=== PATIENT | male | born 1970 | race Two or more races ===

== ENCOUNTER 2024-06-03 21:32 | Emergency (ER) | payer SELFPAY ==
[2024-06-03 21:33] VITALS: BMI 29.4
[2024-06-03 21:47] VITALS: BP 131/84; PULSE 93; RESP 22; TEMP 36.8; O2SAT 92
--- NOTE | 2024-06-03 22:11 | PD.ASTHM ---
ED Asthma RME/HPI General Chief Complaint: Asthma Stated Complaint: COUGH, HX ASTHMA Time Seen by Provider: 06/03/24 22:02 Source: patient Arrival date/time: 06/03/24 21:32 Mode of arrival: ambulatory Limitations: no limitations RME / HPI RME / HPI Narrative: 53-year-old patient presents to the ED with a complaint of asthma like symptoms x 2 weeks. Patient tells me his inhaler were not ordered. MD complaint: asthma attack , shortness of breath and wheezing Onset (ago): week(s) (X 2) Severity: moderate and similar to prior Context: none known Associated symptoms: none Treatments Prior to Arrival: inhaled bronchodilator Related Data Current Asthma Therapy: inhaled bronchodilator Allergies Allergy/AdvReac Type Severity Reaction Status Date / Time acetaminophen (From Tylenol) Allergy Mild Rash Verified 06/03/24 21:37 Review of Systems Review of Systems Systems Reviewed: All systems reviewed, normal except as documented Constitutional Constitutional: Reports system reviewed and no additional complaints, except as documented Cardiovascular Cardiovascular: Reports system reviewed and no additional complaints, except as documented and Reports dyspnea on exertion Respiratory Respiratory: Reports dyspnea on exertion Gastrointestinal Gastrointestinal: Reports system reviewed and no additional complaints, except as documented Musculoskeletal Musculoskeletal: Reports system reviewed and no additional complaints, except as documented Neurologic Neurologic: Reports system reviewed and no additional complaints, except as documented ED Exam General Limitations: Present no limitations General appearance: Present alert and in no apparent distress Head Head exam: Present atraumatic and normocephalic Eye Eye exam: Present normal appearance and EOMI ENT ENT exam: Present normal exam and normal oropharynx Neck Neck exam: Present normal inspection and full ROM Chest Chest inspection: Present normal inspection and symmetric chest wall rise Respiratory Respiratory exam: Present wheezes (WHEEZING THROUGHOUT.) Cardiovascular Cardiovascular exam: Present regular rate Back Exam Back exam: Present normal inspection and full ROM Neurological Exam Neurological exam: Present alert and oriented X3 Psychiatric Psychiatric exam: Present normal affect and normal mood Skin Skin exam: Present warm, dry, intact and normal color Course Course Course Narrative: Patient will have dexamethasone breathing treatment, he will also have his milligrams of dexamethasone by Quality Measures none Orders Category Date Time Status Albuterol/Ipratr Rt Ni [Duoneb Rt Ni] Med 06/03/24 22:03 Discontinued 3 ml INH X1 ONE Dexamethasone Inj [Decadron Inj] Med 06/03/24 22:03 Discontinued 10 mg IM X1 ONE Vital Signs Vital signs: Vital Signs Temperature 98.3 F 06/03/24 21:47 Pulse Rate 93 06/03/24 21:47 Respiratory Rate 22 H 06/03/24 21:47 Blood Pressure 131/84 H 06/03/24 21:47 Pulse Oximetry (%) 92 L 06/03/24 21:47 Oxygen Delivery Method Room Air 06/03/24 21:47 Pulse ox on room air is 92% Asthma Patient data External records reviewed:: Other (specify) Clinical information provided by:: patient Social determinants that could affect healthcare access:: none Patient has the following chronic illnesses:: N/A How is presenting disease/condition affected by chronic disease/condition?: caused by (eXPOSURE TO THE COLD) Evaluation data The following diagnostics were reviewed and interpreted by me:: lab results (N/A) Lab and/or radiology exams considered but not ordered:: N/A Interpretation Summary: N/A Medications / Prescriptions Medications or Prescriptions considered but not ordered:: N/A Medication administrations:: Medication Administration History Discontinued Medications Albuterol/Ipratropium (Albuterol/Ipratropium (Duoneb) Rt Ni 3 Ml Nebu) 3 ml INH X1 ONE Stop: 06/03/24 22:04 Dexamethasone Sodium Phosphate (Dexamethasone Sod Phos Inj 10 Mg/Ml Vial) 10 mg IM X1 ONE Stop: 06/03/24 22:04 Consultations Consultation(s) initiated? (list below): No Diagnosis Most likely diagnosis given after review of the tests above:: NA Admission Indicated Admission indicated?: not indicated Admission Request Was there a request for admission?: No Disposition Plan Disposition Plan: Discharge Discharge Attestation Discharge Attestation: The patient and all family members were given an opportunity to ask questions and understood the discharge instructions. Discharge instructions specifically effects, indications for sooner follow up or return to the emergency department, and the expected course of current diagnosis. Patient condition: Stable Discharge Plan Plan Patient Disposition: HOME (Self Care) Disposition Comment: Patient discharged to home in no apparent respiratory distress. Patient condition on transfer: Stable Problem List Clinical Impression: Asthma with acute exacerbation Impression comment: Auscultation status post breathing treatment patient sounds clear, there is a slight hint of wheezing. Patient/Caregiver Discharge Instructions Education Materials: Asthma Print Language: Arabic JESUSITA/SHANE Supervising Physician JESUSITA/AGRICULTURAL PRODUCTION ENGINEER Supervising Physician: PERLA
[2024-06-03] MEDS: ALBUTEROL/IPRATROPIUM (Duoneb) RT SOL 3 ML NEBU INH (22:14)
[2024-06-03 22:19] VITALS: PULSE 89; RESP 18; O2SAT 100
[2024-06-03] MEDS: DEXAMETHASONE SOD PHOS INJ 10 MG/ML VIAL IM (22:20)
== END 2024-06-03 22:54 | disposition home or self-care (01) ==
LOC: SERX 23:00
PROVIDERS: Emergency Provider Emergency Medicine
DX: J45.901 Unspecified asthma with (acute) exacerbation (principal)
CPT/HCPCS: 94640; 96372; 99283; A9270; J1100

== ENCOUNTER 2024-09-25 08:31 | Emergency (ER) | payer MEDICAID, SELFPAY ==
[2024-09-25 08:54] VITALS: BP 119/77; PULSE 77; RESP 22; TEMP 36.6; O2SAT 94
--- NOTE | 2024-09-25 08:54 | EKG_ITS ---
[facility] Test Date: 2024-09-25 Pat Name: LIDIA PAREDES Department: Room: - Gender: Male Manager Urology: : 1970 Requested By: Isidro Nye (WILLIE) Order Number: [id number] Reading MD: Isidro Nye (ILLUSTRATOR SET) Measurements Intervals [place] Rate: 78 P: 68 [place]: 172 QRS: 58 QRSD: 90 T: 53 QT: 399 QTc: 455 Interpretive Statements SINUS RHYTHM No previous ECG available for comparison /store/S0/[id number]
[2024-09-25 08:59] VITALS: BMI 27.6
--- NOTE | 2024-09-25 09:07 | PD.EDSOB ---
ED SOB =RME/HPI General Chief Complaint: Shortness of Breath/Dyspnea Stated Complaint: SOB X 4 days, asthma Time Seen by Provider: 09/25/24 09:06 Arrival date/time: 09/25/24 08:31 Limitations: no limitations RME / HPI RME / HPI Narrative: 53 year old male with history of asthma presents to the ED for evaluation of shortness of breath beginning 4 days ago. Described feeling he is not able to get a full breath in. Not improved with use of his inhaler. No other associated symptoms reported. Denies fevers, chills, chest pain, abdominal pain, n/v. Related Data Previous Rx's ?Medication ?Instructions ?Recorded albuterol sulfate 90 mcg/actuation 2 puff inhalation Q6H PRN 09/25/24 aerosol inhaler shortness of breath or wheezing #8.5 grams prednisone 20 mg tablet See Taper PO QDAY allergic 09/25/24 reaction #18 tabs Allergies Allergy/AdvReac Type Severity Reaction Status Date / Time No Known Drug Allergies Allergy Verified 09/25/24 08:36 Review of Systems Review of Systems Systems Reviewed: All systems reviewed, normal except as documented Past Medical History Past Medical History CARDIAC: Negative Congestive Heart Failure RESPIRATORY: Positive Asthma; Negative Chronic Obstructive Pulmonary Disease (COPD) GENITOURINARY: Negative Renal Disease ENDOCRINE: Negative Diabetes Mellitus Type 1 or Diabetes Mellitus Type 2 Social History SMOKING STATUS: Never smoker ED Exam General Limitations: Present no limitations General appearance: Present alert and in no apparent distress Head Head exam: Present atraumatic, normocephalic and normal inspection Eye Eye exam: Present normal appearance, PERRL and EOMI ENT ENT exam: Present normal exam, normal oropharynx and mucous membranes moist Neck Neck exam: Present normal inspection, full ROM and trachea midline Chest Chest inspection: Present normal inspection and symmetric chest wall rise Respiratory Respiratory exam: Present other (Diminished breath sounds throughout worse in the bases, expiratory wheezing throughout ) Cardiovascular Cardiovascular exam: Present regular rate, normal rhythm and normal heart sounds Abdominal Exam Abdominal exam: Present soft and normal bowel sounds Extremities Exam Extremities exam: Present normal inspection and full ROM Back Exam Back exam: Present normal inspection and full ROM Neurological Exam Neurological exam: Present alert, oriented X3 and CN II-XII intact Psychiatric Psychiatric exam: Present normal affect and normal mood Skin Skin exam: Present warm, dry, intact and normal color Course Course Course Narrative: 1214: On reassessment, the patient reports feeling some improvement. Will order a second breathing treatment and most likely send home with a prescription for Prednisone and Albuterol inhaler. 1310: Patient reports feeling improved. Will DC home. Quality Measures none Orders Category Date Time Status Erosion Control Coordinator NOW Care 09/25/24 08:54 Completed Continuous Pulse Oximetry NOW Care 09/25/24 08:54 Completed EKG (ED ONLY) *Do not use* NOW Care 09/25/24 08:54 Completed EKG (ED ONLY) *Do not use* NOW Care 09/25/24 09:12 Completed Insert IV NOW Care 09/25/24 09:12 Completed EKG (ED Only) Stat Exams 09/25/24 08:54 Draft EKG (ED Only) Stat Exams 09/25/24 09:12 Ordered XR chest 1V portable Stat Exams 09/25/24 09:12 Completed CBC Stat Lab 09/25/24 09:26 Completed Comprehensive Metabolic Panel Stat Lab 09/25/24 09:26 Completed Prothrombin Time with INR Stat Lab 09/25/24 09:26 Completed Troponin I Stat Lab 09/25/24 09:26 Completed ALBUTEROL RT 0.5ml [Proventil Rt 0.5ml] Med 09/25/24 08:54 Discontinued 10 mg INH X1 ONE ALBUTEROL RT 0.5ml [Proventil Rt 0.5ml] Med 09/25/24 12:14 Discontinued 5 mg INH X1 ONE Ipratropium [place] Rt Ni [Atrovent Rt Ni] Med 09/25/24 08:54 Discontinued 1 mg INH X1 ONE MethylPREDNISolone.* [SoluMEDROL Inj] Med 09/25/24 08:54 Discontinued 125 mg IVP X1 ONE Sodium Chloride Rt Ni 0.9% [NS Rt Ni 0.9%] Med 09/25/24 08:54 Discontinued 3 ml INH PRN PRN Oxygen Delivery NOW RT 09/25/24 09:12 Completed Vital Signs Vital signs: Vital Signs Temperature 97.8 F 09/25/24 08:54 Pulse Rate 77 09/25/24 08:54 Respiratory Rate 22 H 09/25/24 08:54 Blood Pressure 119/77 09/25/24 08:54 Pulse Oximetry (%) 94 L 09/25/24 08:54 Oxygen Delivery Method Room Air 09/25/24 08:54 Pulse ox is 94% on room air which is adequate. Shortness of Breath / Dyspnea MDM Narrative MDM Narrative:: Yulisa Shine am scribing for and in the presence of Dr. Laws Patient data External records reviewed:: [facility] previous records (I reviewed ED visit on 06/03/2024 ) Clinical information provided by:: patient Social determinants that could affect healthcare access:: none Patient has the following chronic illnesses:: Asthma How is presenting disease/condition affected by chronic disease/condition?: no chronic disease Evaluation data The following diagnostics were reviewed and interpreted by me:: lab results, radiology exam(s) and EKG tracing(s) (09/25/2024 @ 08:55 AM. NSR, rate 78, no STEMI. ) Lab and/or radiology exams considered but not ordered:: None Interpretation Summary: Ordering Physician: Antonio Laws MD Date of Service: 09/25/24 Procedure(s): XR chest 1V portable Accession Number(s): [id number] cc: Antonio Laws MD; Laith Sage MD~ Examination: AP chest single view Technique one AP portable upright chest single view Date and time: September 25, 2024 0933 hours INDICATIONS: Shortness of breath beginning 4 days ago. FINDINGS: Normal heart size. Lungs are clear. The osseous structures are intact. IMPRESSION: No active disease. Dictated By: Laith Sage MD Signed By: <Electronically signed by Laith Sage MD in OV> 09/25/24 0943 Medications / Prescriptions Medications or Prescriptions considered but not ordered:: None Medication administrations:: Medication Administration History Discontinued Medications Albuterol (Albuterol Rt 2.5 Mg/0.5 Ml Nebu) 10 mg INH X1 ONE Stop: 09/25/24 08:55 Last Admin: 09/25/24 09:10 Dose: 10 mg Documented By: DU Albuterol (Albuterol Rt 2.5 Mg/0.5 Ml Nebu) 5 mg INH X1 ONE Stop: 09/25/24 12:15 Last Admin: 09/25/24 12:46 Dose: 5 mg Documented By: DU Ipratropium [place] (Ipratropium Rt 0.5 Mg/ 2.5 Ml Nebu) 1 mg INH X1 ONE Stop: 09/25/24 08:55 Last Admin: 09/25/24 09:09 Dose: 1 mg Documented By: JANEEN Methylprednisolone Sodium Succinate (Methylprednisolone Sod Succ 62.5 Mg/Ml 2ml Vial) 125 mg IVP X1 ONE Stop: 09/25/24 08:55 Last Admin: 09/25/24 09:53 Dose: 125 mg Documented By: BEN Sodium Chloride (Sodium Chloride Rt Ni 0.9% 3 Ml Nebu) 3 ml INH PRN PRN PRN Reason: SOLN Stop: 10/25/24 08:53 Last Admin: 09/25/24 12:46 Dose: 3 ml Documented By: Admin: 09/25/24 09:10 Dose: 3 ml Documented By: JANEEN See above Consultations Consultation(s) initiated? (list below): No Diagnosis Shortness of Breath Differential Diagnosis: acute exacerbation of chronic obstructive airways disease, congestive heart failure, community acquired pneumonia, asthma with exacerbation and other (Viral illness ) Most likely diagnosis given after review of the tests above:: Asthma with exacerbation Admission Indicated Admission indicated?: not indicated Admission Request Was there a request for admission?: No Disposition Plan Disposition Plan: Discharge Discharge Attestation Discharge Attestation: The patient and all family members were given an opportunity to ask questions and understood the discharge instructions. Discharge instructions specifically effects, indications for sooner follow up or return to the emergency department, and the expected course of current diagnosis. Patient condition: Stable Discharge Plan Plan Patient Disposition: HOME (Self Care) Prescriptions/Referrals Prescriptions/Med Rec: New prednisone 20 mg tablet See Taper PO QDAY MDD 3 Qty: 18 0RF Taper: Prednisone Taper 20 mg DAILY for 1 Day and 0 Hour Rx Instructions: Take 3 Tabs q Day for 3 days then take 2 tabs q Day for 3 days then take 1 tablet q Day for 3 days then D/C #18 albuterol sulfate 90 mcg/actuation HFA aerosol inhaler 2 puff inhalation Q6H MDD 8 PUFFS PRN (Reason: shortness of breath or wheezing) Qty: 8.5 1RF Referrals: Tiana Tarango FNP [Primary Care Provider] - In 1 week Problem List Clinical Impression: Asthma with exacerbation Patient/Caregiver Discharge Instructions Print Language: Prydeinig Stand Alone Forms: Jeannie Award Info., Patient Portal Info Letter
[2024-09-25] MEDS: IPRATROPIUM RT 0.5 MG/ 2.5 ML NEBU 1 MG INH (09:09)
[2024-09-25 09:10] VITALS: PULSE 104; PULSE 73; RESP 20; O2SAT 99
[2024-09-25] MEDS: SODIUM CHLORIDE RT SOL 0.9% 3 ML NEBU INH ×2 (09:10→12:46)
[2024-09-25] MEDS: ALBUTEROL RT 2.5 MG/0.5 ML NEBU 10 MG INH (09:10)
--- NOTE | 2024-09-25 09:12 | XR_ITS ---
Examination: AP chest single view Technique one AP portable upright chest single view Date and time: September 25, 2024 0933 hours INDICATIONS: Shortness of breath beginning 4 days ago. FINDINGS: Normal heart size. Lungs are clear. The osseous structures are intact. IMPRESSION: No active disease.
[2024-09-25 09:42] LABS: Basophils # (Auto) 0.1 Thou/mm3 (0.0-0.2); Basophils % (Auto) 1 % (0-2.5); Eosinophils # (Auto) 1.0 Thou/mm3 (0.0-0.5); Eosinophils % (Auto) 14 % (0-10); Hematocrit 47.6 % (41.0-53.0); Hemoglobin 16.3 g/dL (13.5-16.0); Immature Granulocytes Auto 0.01 Thou/mm3 (0.00-0.00); Lymphocytes # (Auto) 2.6 Thou/mm3 (1.0-4.8); Lymphocytes % (Auto) 35 % (10-50); Mean Corpuscular HGB Conc 34.2 g/dl (31.0-37.0); Mean Corpuscular Hemoglobin 32.1 pg (25.0-35.0); Mean Corpuscular Volume 94 fL (80-100); Monocytes # (Auto) 0.6 Thou/mm3 (0.0-0.8); Monocytes % (Auto) 8 % (0-12); Neutrophils # (Auto) 3.1 Thou/mm3 (1.8-7.7); Neutrophils % (Auto) 42 % (37-80); Nucleated Red Blood Cell # 0.00 Thou/mm3 (0.00-0.00); Nucleated Red Blood Cell % 0 /100 WBC (0); Platelet Count 206 Thou/mm3 (140-440); RDW Standard Deviation 43.4 fL (35.1-43.9); Red Blood Count 5.07 Miln/mm3 (4.50-5.90); White Blood Count 7.3 Thou/mm3 (3.8-10.6)
[2024-09-25] MEDS: MethylPREDNISolone SOD SUCC 62.5 MG/ML 2ML VIAL 125 MG IVP (09:53)
[2024-09-25 09:54] VITALS: BP 125/85; PULSE 75; PULSE 79; RESP 22; O2SAT 95
[2024-09-25 09:59] LABS: Alanine Aminotransferase 37 U/L (10-49); Albumin, Serum 4.5 gm/dL (3.5-5.0); Albumin/Globulin Ratio 1.8 (1.2-2.2); Alkaline Phosphatase 117 U/L (46-116); Anion Gap 12 (7-16); Aspartate Amino Transferase 50 U/L (0-34); BUN/Creatinine Ratio 16 Ratio (12-20); Bilirubin,Total 0.7 mg/dL (0.3-1.2); Blood Urea Nitrogen 13 mg/dL (9-23); Calcium 9.2 mg/dL (8.3-10.6); Calcium (Corrected) 9.2 mg/dL (8.5-10.1); Carbon Dioxide 24.5 mMol/L (20.0-31.0); Chloride 104 mMol/L (98-107); Creatinine (Component) 0.8 mg/dL (0.6-1.3); Estimated Creatinine Clearance 99.0 mL/min (>60); Globulin 2.5 gm/dL (2.3-3.5); Glucose 102 mg/dL (74-106); INR 1.1 (0.9-1.3); Osmolality,Calculated 279 (275-295); Potassium 3.6 mMol/L (3.4-5.1); Prothrombin Time 11.9 Seconds (9.0-12.2); Sodium 140 mMol/L (136-145); Total Protein 7.0 gm/dL (5.7-8.2); Troponin I < 0.020 ng/mL (0.0-0.045); eGFR > 60 See Note
[2024-09-25 12:46] VITALS: PULSE 77
[2024-09-25] MEDS: ALBUTEROL RT 2.5 MG/0.5 ML NEBU 5 MG INH (12:46)
[2024-09-25 12:47] VITALS: PULSE 77; PULSE 78; RESP 22; RESP 25; O2SAT 94
[2024-09-25 13:18] VITALS: BP 124/75; PULSE 80; RESP 18; O2SAT 88
--- NOTE | 2024-09-25 13:24 | PC.NURSE ---
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 stated okay to dc
== END 2024-09-25 13:31 | disposition home or self-care (01) ==
PROVIDERS: Emergency Provider Family Medicine; PCP Nurse Practitioner Family
DX: J45.901 Unspecified asthma with (acute) exacerbation (principal)
CPT/HCPCS: 36415; 71045; 80053; 81001; 84484; 85025; 85610; 93005; 94640; 94644; 96374; 99283; J2919

== ENCOUNTER 2024-10-27 10:00 | Emergency (ER) | payer MEDICAID, SELFPAY ==
[2024-10-27 10:01] VITALS: BMI 27.4
--- NOTE | 2024-10-27 10:05 | EKG_ITS ---
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
--- NOTE | 2024-10-27 10:12 | XR_ITS ---
Examination: AP chest single view Technique one AP portable upright chest single view Date and time: October 27, 2024, 1018 hrs. Indications: Asthma attack with shortness of breath beginning one week ago. Findings: Normal heart size. Lungs are clear. The osseous structures are intact Impression: No active disease.
[2024-10-27 10:13] VITALS: BP 138/93; PULSE 84; RESP 16; TEMP 37.1; O2SAT 91
--- NOTE | 2024-10-27 10:13 | PD.EDRME ---
Rapid Medical Screening Exam RME Arrival date/time: 10/27/24 10:00 53-year-old male with history of asthma presents to the emergency department today for complaints of difficulty breathing patient has audible wheezing Chief Complaint: Shortness of Breath/Dyspnea
[2024-10-27 10:23] VITALS: PULSE 87
[2024-10-27] MEDS: IPRATROPIUM RT 0.5 MG/ 2.5 ML NEBU 1 MG INH (10:23)
[2024-10-27] MEDS: SODIUM CHLORIDE RT SOL 0.9% 3 ML NEBU INH (10:23)
[2024-10-27] MEDS: ALBUTEROL RT 2.5 MG/0.5 ML NEBU 10 MG INH (10:23)
[2024-10-27 10:26] VITALS: PULSE 87; RESP 16; O2SAT 95
[2024-10-27] MEDS: MethylPREDNISolone SOD SUCC 62.5 MG/ML 2ML VIAL 125 MG IVP (10:27)
[2024-10-27 10:43] LABS: Basophils # (Auto) 0.0 Thou/mm3 (0.0-0.2); Basophils % (Auto) 1 % (0-2.5); Eosinophils # (Auto) 0.7 Thou/mm3 (0.0-0.5); Eosinophils % (Auto) 8 % (0-10); Hematocrit 47.5 % (41.0-53.0); Hemoglobin 16.4 g/dL (13.5-16.0); Immature Granulocytes Auto 0.02 Thou/mm3 (0.00-0.00); Lymphocytes # (Auto) 1.8 Thou/mm3 (1.0-4.8); Lymphocytes % (Auto) 21 % (10-50); Mean Corpuscular HGB Conc 34.5 g/dl (31.0-37.0); Mean Corpuscular Hemoglobin 31.9 pg (25.0-35.0); Mean Corpuscular Volume 92 fL (80-100); Monocytes # (Auto) 0.7 Thou/mm3 (0.0-0.8); Monocytes % (Auto) 8 % (0-12); Neutrophils # (Auto) 5.5 Thou/mm3 (1.8-7.7); Neutrophils % (Auto) 63 % (37-80); Nucleated Red Blood Cell # 0.00 Thou/mm3 (0.00-0.00); Nucleated Red Blood Cell % 0 /100 WBC (0); Platelet Count 306 Thou/mm3 (140-440); RDW Standard Deviation 42.1 fL (35.1-43.9); Red Blood Count 5.14 Miln/mm3 (4.50-5.90); White Blood Count 8.7 Thou/mm3 (3.8-10.6)
--- NOTE | 2024-10-27 10:58 | PD.EDSOB ---
ED SOB =RME/HPI General Chief Complaint: Shortness of Breath/Dyspnea Stated Complaint: DIFF BREATHING/COUGH/ASTHMA X 1 WK Time Seen by Provider: 10/27/24 10:39 Arrival date/time: 10/27/24 10:00 Limitations: no limitations RME / HPI RME / HPI Narrative: 10/27/24 10:00 53-year-old male with history of asthma presents to the emergency department today for complaints of difficulty breathing patient has audible wheezing DR. PRAJAPATI MAIN ED EVALUATION: 53-year-old male with past medical history of asthma presents to the Emergency Department accompanied by his with shortness of breath for one week. He reports cough productive of yellow-white phlegm and states that albuterol has not been providing relief. He denies smoking or other social history. Related Data Previous Rx's ?Medication ?Instructions ?Recorded albuterol sulfate 90 mcg/actuation 2 puff inhalation Q6H PRN 09/25/24 aerosol inhaler shortness of breath or wheezing #8.5 grams prednisone 20 mg tablet See Taper PO QDAY allergic 09/25/24 reaction #18 tabs Allergies Allergy/AdvReac Type Severity Reaction Status Date / Time No Known Drug Allergies Allergy Verified 10/27/24 10:04 Review of Systems Review of Systems Systems Reviewed: All systems reviewed, normal except as documented Past Medical History Past Medical History RESPIRATORY: Positive Asthma Social History SMOKING STATUS: Never smoker SUBSTANCE USE: does not use ALCOHOL: Never ED Exam General Limitations: Present no limitations General appearance: Present alert and in no apparent distress Head Head exam: Present atraumatic, normocephalic and normal inspection Eye Eye exam: Present normal appearance, PERRL and EOMI ENT ENT exam: Present normal exam, normal oropharynx and mucous membranes moist Neck Neck exam: Present normal inspection, full ROM and trachea midline Chest Chest inspection: Present normal inspection and symmetric chest wall rise Respiratory Respiratory exam: Present other (Expiratory wheezing and prolonged expiratory phase without crackles or rales.) Cardiovascular Cardiovascular exam: Present regular rate, normal rhythm and normal heart sounds Abdominal Exam Abdominal exam: Present soft and normal bowel sounds Extremities Exam Extremities exam: Present normal inspection and full ROM Back Exam Back exam: Present normal inspection and full ROM Neurological Exam Neurological exam: Present alert, oriented X3 and CN II-XII intact Psychiatric Psychiatric exam: Present normal affect and normal mood Skin Skin exam: Present warm, dry, intact and normal color Course Quality Measures none Orders Category Date Time Status EKG (ED ONLY) *Do not use* NOW Care 10/27/24 10:05 Completed Insert IV NOW Care 10/27/24 10:12 Active EKG (ED Only) Stat Exams 10/27/24 10:05 Draft XR chest 1V portable Stat Exams 10/27/24 10:12 Completed CBC Stat Lab 10/27/24 10:30 Completed Comprehensive Metabolic Panel Stat Lab 10/27/24 10:30 Completed Mag [Magnesium] Stat Lab 10/27/24 10:30 Completed Troponin I Stat Lab 10/27/24 10:30 Completed ALBUTEROL RT 0.5ml [Proventil Rt 0.5ml] Med 10/27/24 10:12 Discontinued 10 mg INH X1 ONE Ipratropium [place] Rt Ni [Atrovent Rt Ni] Med 10/27/24 10:12 Discontinued 1 mg INH X1 ONE Magnesium Sulfate 2 GM Ivpb [Magnesium Sulfate Ivpb] Med 10/27/24 11:05 Discontinued 2 gm in 50 ml IV X1 MethylPREDNISolone.* [SoluMEDROL Inj] Med 10/27/24 10:12 Discontinued 125 mg IVP X1 ONE Sodium Chloride Rt Ni 0.9% [NS Rt Ni 0.9%] Med 10/27/24 10:12 Active 3 ml INH PRN PRN Vital Signs Vital signs: Vital Signs Temperature 98.7 F 10/27/24 10:13 Pulse Rate 84 10/27/24 10:13 Respiratory Rate 16 10/27/24 10:13 Blood Pressure 138/93 H 10/27/24 10:13 Pulse Oximetry (%) 91 L 10/27/24 10:13 Oxygen Delivery Method Room Air 10/27/24 10:13 Shortness of Breath / Dyspnea MDM Narrative MDM Narrative:: I, Ruthann Sood, am scribing for and in the presence of Dr. Prajapati. Patient data External records reviewed:: [facility] previous records Clinical information provided by:: patient and spouse Social determinants that could affect healthcare access:: none Patient has the following chronic illnesses:: Asthma How is presenting disease/condition affected by chronic disease/condition?: caused by Evaluation data The following diagnostics were reviewed and interpreted by me:: lab results, radiology exam(s) and EKG tracing(s) (My interpretation: EKG performed at 1009 hours, sinus rhythm, rate 84, no acute changes, no STEMI) Lab and/or radiology exams considered but not ordered:: none Interpretation Summary: Procedure(s): XR chest 1V portable Accession Number(s): [id number] cc: Popeye (WILLIE),Isidro TAPIA; Laith Sage MD~ Examination: AP chest single view Technique one AP portable upright chest single view Date and time: October 27, 2024, 1018 hrs. Indications: Asthma attack with shortness of breath beginning one week ago. Findings: Normal heart size. Lungs are clear. The osseous structures are intact Impression: No active disease. Dictated By: Laith Sage MD Medications / Prescriptions Medications or Prescriptions considered but not ordered:: none Medication administrations:: Medication Administration History Sodium Chloride (Sodium Chloride Rt Ni 0.9% 3 Ml Nebu) 3 ml INH PRN PRN PRN Reason: SOLN Stop: 11/26/24 10:11 Last Admin: 10/27/24 10:23 Dose: 3 ml Documented By: LALITO Discontinued Medications Albuterol (Albuterol Rt 2.5 Mg/0.5 Ml Nebu) 10 mg INH X1 ONE Stop: 10/27/24 10:13 Last Admin: 10/27/24 10:23 Dose: 10 mg Documented By: LALITO Magnesium Sulfate (Magnesium Sulfate Ivpb) 2 gm in 50 mls @ 25 mls/hr IV X1 ONE Stop: 10/27/24 13:04 Last Admin: 10/27/24 11:24 Dose: 25 mls/hr Documented By: BHARTI Ipratropium [place] (Ipratropium Rt 0.5 Mg/ 2.5 Ml Nebu) 1 mg INH X1 ONE Stop: 10/27/24 10:13 Last Admin: 10/27/24 10:23 Dose: 1 mg Documented By: LALITO Methylprednisolone Sodium Succinate (Methylprednisolone Sod Succ 62.5 Mg/Ml 2ml Vial) 125 mg IVP X1 ONE Stop: 10/27/24 10:13 Last Admin: 10/27/24 10:27 Dose: 125 mg Documented By: BHARTI see above Consultations Consultation(s) initiated? (list below): No Diagnosis Shortness of Breath Differential Diagnosis: other (Asthma exacerbation, acute bronchitis, and pneumonia.) Most likely diagnosis given after review of the tests above:: Asthma exacerbation Admission Indicated Admission indicated?: not indicated Admission Request Was there a request for admission?: No Disposition Plan Disposition Plan: Discharge Discharge Attestation Discharge Attestation: The patient and all family members were given an opportunity to ask questions and understood the discharge instructions. Discharge instructions specifically effects, indications for sooner follow up or return to the emergency department, and the expected course of current diagnosis. Patient condition: Stable Discharge Plan Plan Patient Disposition: HOME (Self Care) Patient condition on transfer: Stable Prescriptions/Referrals Prescriptions/Med Rec: No Action prednisone 20 mg tablet See Taper PO QDAY MDD 3 Qty: 18 0RF Taper: Prednisone Taper 20 mg DAILY for 1 Day and 0 Hour Rx Instructions: Take 3 Tabs q Day for 3 days then take 2 tabs q Day for 3 days then take 1 tablet q Day for 3 days then D/C #18 albuterol sulfate 90 mcg/actuation HFA aerosol inhaler 2 puff inhalation Q6H MDD 8 PUFFS PRN (Reason: shortness of breath or wheezing) Qty: 8.5 1RF Referrals: Calvin Nina MD [Primary Care Provider, Family Practice] - In 1 week Problem List Clinical Impression: Asthma exacerbation Patient/Caregiver Discharge Instructions Education Materials: Controlling Your Asthma, Asthma Additional Instructions: Please follow-up with your primary care physician within 2-3 days. Return to the Emergency Department as needed. \ Navneet un seguimiento con shafer m?dico de cabecera dentro de 2-3 sosa. Regrese al Departamento de Emergencias seg?n sea necesario. Print Language: Sinhala Stand Alone Forms: Jeannie Award Info., Work/School Release, Patient Portal Info Letter
[2024-10-27 11:22] LABS: Alanine Aminotransferase 27 U/L (10-49); Albumin, Serum 4.4 gm/dL (3.5-5.0); Albumin/Globulin Ratio 1.8 (1.2-2.2); Alkaline Phosphatase 115 U/L (46-116); Anion Gap 8 (7-16); Aspartate Amino Transferase 25 U/L (0-34); BUN/Creatinine Ratio 11 Ratio (12-20); Bilirubin,Total 1.0 mg/dL (0.3-1.2); Blood Urea Nitrogen 10 mg/dL (9-23); Calcium 9.2 mg/dL (8.3-10.6); Calcium (Corrected) 9.2 mg/dL (8.5-10.1); Carbon Dioxide 26.0 mMol/L (20.0-31.0); Chloride 106 mMol/L (98-107); Creatinine (Component) 0.9 mg/dL (0.6-1.3); Estimated Creatinine Clearance 90.8 mL/min (>60); Globulin 2.5 gm/dL (2.3-3.5); Glucose 98 mg/dL (74-106); Magnesium 2.2 mg/dL (1.6-2.6); Osmolality,Calculated 278 (275-295); Potassium 3.9 mMol/L (3.4-5.1); Sodium 140 mMol/L (136-145); Total Protein 6.9 gm/dL (5.7-8.2); Troponin I < 0.002 ng/mL (0.0-0.045); eGFR > 60 See Note
[2024-10-27] MEDS: Magnesium Sulfate 2 GM Ivpb 2 GM/50 ML BAG IV (11:24)
[2024-10-27 13:44] VITALS: BP 119/75; PULSE 82; RESP 24; TEMP 36.8; O2SAT 93
== END 2024-10-27 15:42 | disposition home or self-care (01) ==
PROVIDERS: Nurse Practitioner Primary Care; Emergency Provider Family Medicine; PCP Family Medicine
DX: J45.901 Unspecified asthma with (acute) exacerbation (principal)
CPT/HCPCS: 36415; 71045; 80053; 83735; 84484; 85025; 93005; 94644; 96374; 99283; J2919; J3475

== ENCOUNTER 2024-11-10 09:05 | Inpatient (IN) | payer MEDICAID, SELFPAY ==
[2024-11-10] VITALS (43 sets, daily range): BP systolic 95–159; BP diastolic 56–89; PULSE 106–135; RESP 12–42; TEMP 35.9–36.8; O2SAT 91–100; BMI 30.9; BMI 25.7
--- NOTE | 2024-11-10 09:17 | XR_ITS ---
Examination: AP chest single view Technique one AP portable upright chest single view Date and time: November 10, 2024, 0957 hrs., Comparison 10/27/2024 Indication: Chest pain shortness of breath coughing today Findings: Early bibasilar pneumonia Normal heart size The osseous structures are intact Impression: Early bibasilar pneumonia
--- NOTE | 2024-11-10 09:18 | EKG_ITS ---
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
--- NOTE | 2024-11-10 09:18 | PD.EDRME ---
Rapid Medical Screening Exam E Arrival date/time: 11/10/24 09:05 This is a 53-year-old male that comes into the emergency room with complaints of shortness of breath runny nose that started last night. Patient states he has a history of asthma. Patient was seen here about 2 weeks ago with similar symptoms. Patient states he has an albuterol inhaler that he takes but it was not helping him. Patient states that his son is currently sick with a respiratory infection. Patient denies fever or chills. Patient states he did have a vomiting episode this morning. Patient denies any other symptoms. I have greeted and performed a focused initial assessment of this patient. Initial appropriate labs ordered at this time. A comprehensive ED assessment and evaluation of the patient and analysis of all test and completion of medical decision making process will be conducted by additional ED provider. Chief Complaint: Shortness of Breath/Dyspnea Time Seen by Provider: 11/10/24 09:13 Vital signs: Vital Signs Temperature 97.9 F 11/10/24 09:10 Pulse Rate 132 H 11/10/24 09:10 Respiratory Rate 24 H 11/10/24 09:10 Blood Pressure 102/61 11/10/24 09:10 Pulse Oximetry (%) 91 L 11/10/24 09:10 Oxygen Delivery Method Room Air 11/10/24 09:10
--- NOTE | 2024-11-10 09:21 | EDNOTE_ITS ---
ED SOB =RME/HPI General Chief Complaint: Shortness of Breath/Dyspnea Stated Complaint: SOB SINCE 0100 TODAY Time Seen by Provider: 11/10/24 09:13 Arrival date/time: 11/10/24 09:05 Limitations: no limitations RME / HPI RME / HPI Narrative: 11/10/24 09:05 This is a 53-year-old male that comes into the emergency room with complaints of shortness of breath runny nose that started last night. Patient states he has a history of asthma. Patient was seen here about 2 weeks ago with similar symptoms. Patient states he has an albuterol inhaler that he takes but it was not helping him. Patient states that his son is currently sick with a respiratory infection. Patient denies fever or chills. Patient states he did have a vomiting episode this morning. Patient denies any other symptoms. I have greeted and performed a focused initial assessment of this patient. Initial appropriate labs ordered at this time. A comprehensive ED assessment and evaluation of the patient and analysis of all test and completion of medical decision making process will be conducted by additional ED provider. DR. KRUSE MAIN ED EVALUATION: 53-year-old male with a past medical history of asthma presents to the Emergency Department accompanied by his for shortness of breath since 1 AM today. No fevers, chills, cough, or other symptoms at this time. On arrival, patient is dyspneic, tachypneic, with diminished breath sounds, wheezing, and appears in respiratory distress. Related Data Previous Rx's ?Medication ?Instructions ?Recorded albuterol sulfate 90 mcg/actuation 2 puff inhalation Q 6H PRN 09/25/24 aerosol inhaler shortness of breath or wheez ing #8.5 grams prednisone 20 mg tablet See Taper PO QDAY allergic 0 09/25/24 reaction #18 tabs albuterol sulfate 90 mcg/actuation 2 puff inhalation Q 6H PRN 10/27/24 aerosol inhaler shortness of breath or wheez ing #8.5 grams doxycycline monohydrate 100 mg 100 mg PO BID BRONCHITI S #20 caps 10/27/24 capsule prednisone 20 mg tablet See Taper PO QDAY allergic 0 10/27/24 reaction #18 tabs Allergies Allergy/AdvReac Type Severity Reaction Status Date / Time No Known Allergies Allergy Unverified 11/10/24 09:17 Review of Systems Review of Systems Systems Reviewed: All systems reviewed, normal except as documented Past Medical History Past Medical History RESPIRATORY: Positive Asthma Social History SMOKING STATUS: Never smoker SUBSTANCE USE: does not use ALCOHOL: Never ED Exam General Limitations: Present no limitations General appearance: Present alert and other (On arrival, patient is dyspneic, tachypneic, and appears in respiratory distress.) Head Head exam: Present atraumatic, normocephalic and normal inspection Eye Eye exam: Present normal appearance, PERRL and EOMI ENT ENT exam: Present normal exam, normal oropharynx and mucous membranes moist Neck Neck exam: Present normal inspection, full ROM and trachea midline Chest Chest inspection: Present normal inspection and symmetric chest wall rise Respiratory Respiratory exam: Present respiratory distress (Patient is dyspneic, tachypneic, with diminished breath sounds, wheezing, and appears in respiratory distress.) and wheezes Cardiovascular Cardiovascular exam: Present normal rhythm and tachycardia Abdominal Exam Abdominal exam: Present soft; Absent distention or tenderness Extremities Exam Extremities exam: Present normal inspection and full ROM Neurological Exam Neurological exam: Present alert, oriented X3 and CN II-XII intact Psychiatric Psychiatric exam: Present normal affect and normal mood Skin Skin exam: Present warm, dry, intact and normal color Course Quality Measures none Orders Category Date Time Status Bedside COVID-19 Antigen Test NOW Care 11/10/24 09:17 Active EKG (ED ONLY) *Do not use* NOW Care 11/10/24 09:18 Completed IV [Insert IV] STAT Care 11/10/24 09:18 Active EKG (ED Only) Stat Exams 11/10/24 09:18 Draft XR chest 1V Stat Exams 11/10/24 09:17 Completed Influenza A & B Rapid Panel Stat Lab 11/10/24 09:29 Completed ALBUTEROL RT 0.5ml [Proventil Rt 0.5ml] Med 11/10/24 09:21 Discontinued 10 mg INH X1 ONE ALBUTEROL RT 0.5ml [Proventil Rt 0.5ml] Med 11/10/24 11:14 Discontinued 10 mg INH X1 ONE ALBUTEROL RT 0.5ml [Proventil Rt 0.5ml] Med 11/10/24 12:29 Discontinued 10 mg INH X1 ONE ALBUTEROL RT 0.5ml [Proventil Rt 0.5ml] Med 11/10/24 09:15 Discontinued 2.5 mg INH X1 ONE EPINEPHrine Inj [Adrenalin Inj] Med 11/10/24 12:28 Discontinued 0.5 mg IM X1 ONE Ipratropium Stella Rt Ni [Atrovent Rt Ni] Med 11/10/24 09:21 Discontinued 1 mg INH X1 ONE Magnesium Sulfate 2 GM Ivpb [Magnesium Sulfate Ivpb] Med 11/10/24 09:21 Discontinued 2 gm in 50 ml IV X1 MethylPREDNISolone.* [SoluMEDROL Inj] Med 11/10/24 09:20 Discontinued 125 mg IVP X1 ONE Ringers Lactated 1000 ml [Lactated Ringers] 1,000 ml Med 11/10/24 09:21 Discontinued IV 999 mls/hr Sodium Chloride Rt Ni 0.9% [NS Rt Ni 0.9%] Med 11/10/24 09:15 Discontinued 3 ml INH PRN PRN Sodium Chloride Rt Ni 0.9% [NS Rt Ni 0.9%] Med 11/10/24 09:21 Discontinued 3 ml INH PRN PRN Sodium Chloride Rt Ni 0.9% [NS Rt Ni 0.9%] Med 11/10/24 11:14 Discontinued 3 ml INH PRN PRN Sodium Chloride Rt Ni 0.9% [NS Rt Ni 0.9%] Med 11/10/24 12:29 Active 3 ml INH PRN PRN BiPAP / CPAP NOW RT 11/10/24 11:16 Active Vital Signs Vital signs: Vital Signs Temperature 97.9 F 11/10/24 09:10 Pulse Rate 132 H 11/10/24 09:10 Respiratory Rate 24 H 11/10/24 09:10 Blood Pressure 102/61 11/10/24 09:10 Pulse Oximetry (%) 91 L 11/10/24 09:10 Oxygen Delivery Method Room Air 11/10/24 09:10 Shortness of Breath / Dyspnea MDM Narrative MDM Narrative:: Patient is a 53-year-old male with medical history notable for asthma send Emergency Department concerns for shortness of breath. Vital signs and exam as listed. Concern for asthma exacerbation, pneumonia, viral syndrome among others. Patient with any chest pain, no lower extremity edema, no history of heart disease, less likely CHF exacerbation. Patient was placed in resuscitation room, IV access obtained. Hour-long DuoNeb breathing treatment, steroids, fluids and 2 g of magnesium were provided. Chest x-ray appears hyperinflated has evidence of pneumonia. Antibiotics provided. Initially patient responded well to first hour-long breathing treatment however shortly after relapse and started having increased work of breathing and felt tight again. Provided patient with another hour-long breathing treatment and given patient's increased work of breathing also started him on BiPAP. Despite being on BiPAP, patient feels short of breath and is having a hard time achieving relief. Ordered another hour-long breathing treatment as well as intramuscular epinephrine. Discussed case with distribution designer, recommends that we trial patient off of BiPAP and keep him on DuoNebs, kindly accepts patient for admission. Updated patient and his , in agreement with treatment plan. I, Ruthann Sood, am scribing for and in the presence of Dr. Kruse. Patient data External records reviewed:: [facility] previous records Clinical information provided by:: patient Social determinants that could affect healthcare access:: none Patient has the following chronic illnesses:: Asthma How is presenting disease/condition affected by chronic disease/condition?: caused by Evaluation data The following diagnostics were reviewed and interpreted by me:: lab results, radiology exam(s) and EKG tracing(s) (My interpretation: EKG performed at 0924 hours, sinus tachycardia, rate 134, significant motion artifacti, normal intervals, not a cardiac alert) Lab and/or radiology exams considered but not ordered:: none Interpretation Summary: See MDM narrative above. RADIOLOGY Procedure(s): XR chest 1V Accession Number(s): [id number] cc: Calvin Nina MD; Laith Sage MD; Estrellita Pepper NP~ Examination: AP chest single view Technique one AP portable upright chest single view Date and time: November 10, 2024, 0957 hrs., Comparison 10/27/2024 Indication: Chest pain shortness of breath coughing today Findings: Early bibasilar pneumonia Normal heart size The osseous structures are intact Impression: Early bibasilar pneumonia Dictated By: Laith Sage MD Medications / Prescriptions Medications or Prescriptions considered but not ordered:: none Medication administrations:: Medication Administration History Sodium Chloride (Sodium Chloride Rt Ni 0.9% 3 Ml Nebu) 3 ml INH PRN PRN PRN Reason: SOLN Stop: 12/10/24 12:28 Discontinued Medications Albuterol (Albuterol Rt 2.5 Mg/0.5 Ml Nebu) 2.5 mg INH X1 ONE Stop: 11/10/24 09:16 Last Admin: 11/10/24 10:31 Dose: Not Given Documented By: LALITO Non-Admin Reason: Discontinued Albuterol (Albuterol Rt 2.5 Mg/0.5 Ml Nebu) 10 mg INH X1 ONE Stop: 11/10/24 09:22 Last Admin: 11/10/24 09:33 Dose: 10 mg Documented By: LALITO Albuterol (Albuterol Rt 2.5 Mg/0.5 Ml Nebu) 10 mg INH X1 ONE Stop: 11/10/24 11:15 Last Admin: 11/10/24 11:40 Dose: 10 mg Documented By: LALITO Albuterol (Albuterol Rt 2.5 Mg/0.5 Ml Nebu) 10 mg INH X1 ONE Stop: 11/10/24 12:30 Epinephrine HCl (Epinephrine Inj 1 Mg/Ml Amp) 0.5 mg IM X1 ONE Stop: 11/10/24 12:29 Magnesium Sulfate (Magnesium Sulfate Ivpb) 2 gm in 50 mls @ 25 mls/hr IV X1 ONE Stop: 11/10/24 11:20 Last Infusion: 11/10/24 11:46 Dose: Infused Documented By: Admin: 11/10/24 09:26 Dose: 25 mls/hr Documented By: KM Lactated Ringer's (Lactated Ringers) 1,000 mls @ 999 mls/hr IV .Q1H1M ONE Stop: 11/10/24 10:21 Last Infusion: 11/10/24 12:09 Dose: Infused Documented By: Admin: 11/10/24 09:31 Dose: 999 mls/hr Documented By: BY Ipratropium Stella (Ipratropium Rt 0.5 Mg/ 2.5 Ml Nebu) 1 mg INH X1 ONE Stop: 11/10/24 09:22 Last Admin: 11/10/24 09:34 Dose: 1 mg Documented By: LALITO Methylprednisolone Sodium Succinate (Methylprednisolone Sod Succ 62.5 Mg/Ml 2ml Vial) 125 mg IVP X1 ONE Stop: 11/10/24 09:21 Last Admin: 11/10/24 09:26 Dose: 125 mg Documented By: COLLIN Sodium Chloride (Sodium Chloride Rt Ni 0.9% 3 Ml Nebu) 3 ml INH PRN PRN PRN Reason: SOLN Stop: 12/10/24 09:14 Sodium Chloride (Sodium Chloride Rt Ni 0.9% 3 Ml Nebu) 3 ml INH PRN PRN PRN Reason: SOLN Stop: 12/10/24 09:20 Sodium Chloride (Sodium Chloride Rt Ni 0.9% 3 Ml Nebu) 3 ml INH PRN PRN PRN Reason: SOLN Stop: 12/10/24 11:13 see above Consultations Consultation(s) initiated? (list below): Yes Consultation #1 (Physician, Specialty, Details): Discussed test HPI, PMHx, lab, radiology results and/or management with distribution designer Dr. Polanco. Trial off BiPaP because sometimes the patient's w/ hx of Asthma and not COPD will feel better without it. She also agreed with given the patient Epi and will admit the patient to the ICU unit. Time: 12:28 Diagnosis Shortness of Breath Differential Diagnosis: other (Asthma exacerbation, pneumonia, and COPD exacerbation.) Most likely diagnosis given after review of the tests above:: Asthma exacerbation Admission Indicated Admission indicated?: not indicated Admission Request Was there a request for admission?: Yes Admission Attestation Admission request attestation: Discussed case with [] from Hospitalist service regarding admission. Discussed patients ED course, exam findings, labs, and radiology results. The Hospitalist [agrees,declines] to accept the patient for admission. Disposition Plan Disposition Plan: Admit Critical Care Time Critical Care Time Critical Care Time: Yes Total Critical Care Time (min.): 60 Attestation: Total critical care time: Approximately?36?minutes Due to a high probability of clinically significant, life threatening deterioration, the patient required my highest level of preparedness to intervene emergently and I personally spent this critical care time directly and personally managing the patient. This critical care time included obtaining a history; examining the patient; pulse oximetry; ordering and review of studies; arranging urgent treatment with development of a management plan; evaluation of patient's response to treatment; frequent reassessment; and, discussions with other providers. This critical care time was performed to assess and manage the high probability of imminent, life-threatening deterioration that could result in multi-organ failure. It was exclusive of separately billable procedures and treating other patients and teaching time. Please see MDM section and the rest of the note for further information on patient assessment and treatment. Discharge Plan Plan Patient Disposition: Admit Acute Care w/in Hospital Prescriptions/Referrals Prescriptions/Med Rec: No Action prednisone 20 mg tablet See Taper PO QDAY MDD 3 Qty: 18 0RF Taper: Prednisone Taper 20 mg DAILY for 1 Day and 0 Hour Rx Instructions: Take 3 Tabs q Day for 3 days then take 2 tabs q Day for 3 days then take 1 tablet q Day for 3 days then D/C #18 albuterol sulfate 90 mcg/actuation HFA aerosol inhaler 2 puff inhalation Q6H MDD 8 PUFFS PRN (Reason: shortness of breath or wheezing) Qty: 8.5 1RF albuterol sulfate 90 mcg/actuation HFA aerosol inhaler 2 puff inhalation Q6H PRN (Reason: shortness of breath or wheezing) Qty: 8.5 1RF prednisone 20 mg tablet See Taper PO QDAY MDD 3 Qty: 18 0RF Taper: Prednisone Taper 20 mg DAILY for 9 Days Rx Instructions: Take 3 Tabs q Day for 3 days then take 2 tabs q Day for 3 days then take 1 tablet q Day for 3 days then D/C #18 doxycycline monohydrate 100 mg capsule 100 mg PO BID MDD 2 Qty: 20 0RF Referrals: Calvin Nina MD [Primary Care Provider, Family Practice] - In 1 week Problem List Clinical Impression: Asthma with exacerbation Patient/Caregiver Discharge Instructions Print Language: Bhutanese Stand Alone Forms: Jeannie Award Info., Patient Portal Info Letter
[2024-11-10] MEDS: Magnesium Sulfate 2 GM Ivpb 2 GM/50 ML BAG IV ×3 (09:26→21:35)
[2024-11-10] MEDS: MethylPREDNISolone SOD SUCC 62.5 MG/ML 2ML VIAL 125 MG IVP (09:26)
[2024-11-10] MEDS: RINGERS LACTATED 1000 ML 1,000 ML 999 ML IV ×3 (09:31→19:26)
[2024-11-10] MEDS: ALBUTEROL RT 2.5 MG/0.5 ML NEBU 10 MG INH ×3 (09:33→12:34)
[2024-11-10] MEDS: IPRATROPIUM RT 0.5 MG/ 2.5 ML NEBU 1 MG INH (09:34)
--- NOTE | 2024-11-10 09:35 | PC.NURSE ---
patient states shortnes of breath since 1 am , has been used inhailers with no relief
[2024-11-10 10:28] LABS: Influenza A Ag Negative; Influenza B Ag Negative
--- NOTE | 2024-11-10 11:36 | PC.NURSE ---
patient noted to be short of breath using abdominal muscles , notified new orders recived
[2024-11-10] MEDS: SODIUM CHLORIDE RT SOL 0.9% 3 ML NEBU INH ×2 (12:34→15:04)
[2024-11-10] MEDS: EPINEPHrine INJ 1 MG/ML AMP 0.5 MG IM (12:35)
[2024-11-10] MEDS: cefTRIAXone/D5w 1gm IV premix 1 GM/50 ML BAG IV (13:01)
[2024-11-10 13:08] LABS: Basophils # (Auto) 0.1 Thou/mm3 (0.0-0.2); Basophils % (Auto) 0 % (0-2.5); Eosinophils # (Auto) 0.0 Thou/mm3 (0.0-0.5); Eosinophils % (Auto) 0 % (0-10); Hematocrit 48.7 % (41.0-53.0); Hemoglobin 16.7 g/dL (13.5-16.0); Immature Granulocytes Auto 0.16 Thou/mm3 (0.00-0.00); Lymphocytes # (Auto) 0.4 Thou/mm3 (1.0-4.8); Lymphocytes % (Auto) 1 % (10-50); Mean Corpuscular HGB Conc 34.3 g/dl (31.0-37.0); Mean Corpuscular Hemoglobin 32.5 pg (25.0-35.0); Mean Corpuscular Volume 95 fL (80-100); Monocytes # (Auto) 0.3 Thou/mm3 (0.0-0.8); Monocytes % (Auto) 1 % (0-12); Neutrophils # (Auto) 26.5 Thou/mm3 (1.8-7.7); Neutrophils % (Auto) 97 % (37-80); Nucleated Red Blood Cell # 0.00 Thou/mm3 (0.00-0.00); Nucleated Red Blood Cell % 0 /100 WBC (0); Platelet Count 214 Thou/mm3 (140-440); RDW Standard Deviation 43.1 fL (35.1-43.9); Red Blood Count 5.14 Miln/mm3 (4.50-5.90); White Blood Count 27.3 Thou/mm3 (3.8-10.6)
--- NOTE | 2024-11-10 13:40 | ESHP_ITS ---
<Statement entered by Jerry Zamudio MD - 11/10/24 16:20> This patient is a 53-year-old male with significant history of asthma diagnosed 10 years ago on rescue inhaler presented to the ED on 11/10/24 with chief complaint of acute shortness of breath started at 1 AM. Patient had recurrent episodes of asthma in last 1 year. His asthma has progressively worsened from last 5 years. His recent episode was 2 weeks ago when he came to the ER and was given medications and sent home. He had an episode of nonbloody nonbilious vomiting. He endorsed tiredness, decreased appetite, rhinorrhea as well.In the ED, patient was mildly hypertensive, tachycardic, tachypneic and afebrile. He was saturating 91% seen on breathing treatment. In the ED patient received IV Solu-Medrol 125 mg x 1, magnesium 2 g x 1, albuterol 10 mg inhaler x 3, ipratropium 1 mg x 1 and epinephrine 0.5 mg x 1 with Rocephin and azithromycin. EKG showed sinus tachycardia with no acute ST-T changes with QTc 465. Labs were significant for leukocytosis, polycythemia. ABGs revealed pH 7.38, pCO2 of 34, pO2 75, bicarb 20. Lactic acid 8.7. Patient is admitted for acute respiratory distress due to asthma exacerbation. Patient was alert and oriented x 4 during assessment. Examination was significant for wheezing heard more on the left side and decreased breath sounds on the right side. Patient was tachypneic and short of breath with breathing treatment. He had no mottling or skin color change and no lower extremity edema. No bluish discoloration was seen on nails. Patient was given 60 mg IV ketamine x 1, will continue with breathing treatments Q1 hourly as needed for shortness of breath, albuterol 5 mg inhaler Q1 hourly scheduled, ipratropium 2 mg Q1 hourly scheduled. Will monitor potassium every 4 hourly given high dose of albuterol. Follow-up with ABGs. Continue Solu-Medrol 60 mg Q6 hourly. Patient received 2 L bolus of LR x 1. Replete potassium as necessary. Lactic acid might be elevated due to epinephrine and albuterol treatment. Patient does not show signs of hypoperfusion at this point. Keep magnesium above 2 and potassium above 4. Keep patient strictly n.p.o. only meds. Will follow-up with ABGs and labs. Close monitoring of patient's breathing pattern every 30 to 40 minutes due to concern for respiratory failure. In case of worsening breathing pattern or acute respiratory distress eminent to intubation patient will need deep sedation with RASS 5 along with paralytic. I discussed and supervised with the internal audit senior manager physician who took care of this patient. I personally saw and examined the patient. I agree with most of the assessment and plan. Disclaimer: Despite multiple revisions, due to the dictation software being used, the document bellow may not be free of grammatical errors including phonetic/typographic errors. However, this does not deter from our commitment to providing health care in the patient's best interest in mind. Plan of care discussed with attending Physician Dr. Collin Zamudio MD PGY-3 Documentation for date of: 11/10/24 HPI History of Present Illness History of present illness: 53-year-old male with a past medical history of asthma, diagnosed 10 years ago on rescue inhaler (with no history of childhood asthma), presents to the ED on 11/10/2024 with acute onset shortness of breath that began around 1:00 AM. He reports that his asthma has worsened over the past five years. He uses his albuterol inhaler approximately three times daily. He reports having had similar symptoms in the past and has visited the ED three times previously for asthma exacerbations. He also reports one episode of non-bloody, non-bilious vomiting this morning. Associated symptoms include rhinorrhea, decreased appetite, bloating with meals, and dark diarrhea for the past two days. He notes a 10-pound unintentional weight loss over the past two months. He denies fever, chills, cough, recent illness, recent travel, or chest pain. The patient moved to [place] 11 years ago and was diagnosed with asthma after moving. Prior [facility] ED visits (per chart review) for asthma exacerbation include: 06/03/2024, 09/25/2024, 10/27/2024. ED Course: -Initial vitals were: BP 102/61, HR 132, RR 24, temp 97.9 ?F, O2 sats 91% on room air. -Labs significant for: WBC 27.3(H), Hgb 16.7 (H); ABG pH 7.38, pCO2 34, pO2 75 (L), HCO3 20, O2 sat 96; glucose 186 (H), lactic acid 8.7 (H). -Imaging included: CXR: early bibasilar pneumonia. EKG: sinus tachycardia, QTc 465. -In the ED, patient was given: IV Methylprednisolone 125 mg x1, Magnesium 2 gm x1, LR 1L, Albuterol 10mg INH x3, Ipratropium 1mg INH x1, sodium chloride 3mL INH, IM Epinephrine 0.5mg x1, IV Ceftriaxone 1gm, IV Azithromycin 500mg. Past Medical History: as above. Past Surgical History: none. Family History: sister has diabetes. Social History: - Smoking: none. - Alcohol: in the past, not currently drinking. - Residence: lives in [place]. 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 Current Medications: albuterol, doxycycline. Allergies: No known drug allergies. Patient admitted to ICU for recurrent, poorly controlled asthma exacerbations requiring frequent ED visits. Review of Systems Review of Systems Narrative Review of Systems: All review of systems are negative except as listed above in the HPI. Exam Vital Signs Temp Pulse Resp BP Pulse Ox O2 Del Method O2 Flow Rate 97.9 F 111 H 25 H 140/89 H 94 L BiPAP 8 11/10/24 09:10 11/10/24 12:36 11/10/24 12:36 11/10/24 12:35 11/10/24 12:36 11/10/24 12:07 11/10/24 12:36 FiO2 50 11/10/24 11:40 Narrative Exam Physical Exam General: Awake, in respiratory distress, on BIPAP Head: Normocephalic, atraumatic. Eyes: Pupils equally round and reactive to light. Anicteric. Mouth/Throat: moist mucous membranes. Heart: Tachycardic (HR 120), regular rate and rhythm, no murmurs. No JVD. Lungs: Tachypneic (RR 29), labored breathing, using accessory muscles, short and shallow breathing, wheezing on auscultation bilaterally (left > right), decreased breath sounds on the right side. Abdomen: Soft, distended. No guarding or rebound tenderness. Neurologic: Alert and oriented x4, no gross neurological deficit, and patient able to move all 4 extremities. Extremities: No edema. Posterior tibial pulses are 2+ bilaterally. 2+ radial pulse bilaterally. No clubbing or cyanosis. No mottling. Skin: olga on left upper back. Psychiatric: anxious. Results: Labs 11/11/24 04:58 11/11/24 04:58 Labs: Short CBC 11/10/24 Range/Units 12:45 WBC 27.3 H (3.8-10.6) Thou/mm3 Hgb 16.7 H (13.5-16.0) g/dL Hct 48.7 (41.0-53.0) % Plt Count 214 D (140-440) Thou/mm3 Quality Measures Quality Measures none Medications Home Medications and Allergies Allergies Allergy/AdvReac Type Severity Reaction Status Date / Time No Known Allergies Allergy Unverified 11/10/24 09:17 Visit Medications Acetaminophen (Acetaminophen 325 Mg Tablet) 650 mg PO Q6H PRN PRN Reason: Fever >101.5 Stop: 12/10/24 13:28 Acetaminophen (Acetaminophen 325 Mg Tablet) 650 mg PO Q6H PRN PRN Reason: PAIN SCALE 1-3 (mild Stop: 12/10/24 13:28 Albuterol/Ipratropium (Albuterol/Ipratropium (Duoneb) Rt Ni 3 Ml Nebu) 3 ml INH Q4HRRT JUAN Stop: 12/10/24 14:59 Heparin Sodium (Porcine) (Heparin Sod Inj 5000 Unit/Ml Vial) 5,000 unit SC Q8HR JUAN Stop: 11/24/24 13:59 Ceftriaxone Sodium/Dextrose (Rocephin/D5w 1gm Iv Premix) 1 gm in 50 mls @ 100 mls/hr IV QDAY JUAN Stop: 11/18/24 08:59 Azithromycin 250 mg/ Sterile (Water 2.5 ml/ Sodium Chloride) 252.5 mls @ 252.5 mls/hr IV QDAY JUAN Stop: 11/15/24 13:33 Methylprednisolone Sodium Succinate (Methylprednisolone Sod Succ 40 Mg/Ml Vial) 60 mg IVP BID JUAN Stop: 11/17/24 20:59 Ondansetron HCl (Ondansetron Inj 2 Mg/Ml Inj 2 Ml) 4 mg IVP Q6H PRN; Protocol PRN Reason: NAUSEA OR VOMITING Stop: 12/10/24 13:28 Pantoprazole Sodium (Pantoprazole Inj 40 Mg Vial) 40 mg IVP QDAY JUAN Stop: 12/10/24 13:44 Sennosides (Senna Tablet) 1 tab PO QDAY PRN; Protocol PRN Reason: constipation Stop: 12/10/24 13:28 Sodium Chloride (Sodium Chloride Rt Ni 0.9% 3 Ml Nebu) 3 ml INH PRN PRN PRN Reason: SOLN Stop: 12/10/24 12:28 Last Admin: 11/10/24 12:34 Dose: 3 ml Discontinued Medications Albuterol (Albuterol Rt 2.5 Mg/0.5 Ml Nebu) 2.5 mg INH X1 ONE Stop: 11/10/24 09:16 Last Admin: 11/10/24 10:31 Dose: Not Given Albuterol (Albuterol Rt 2.5 Mg/0.5 Ml Nebu) 10 mg INH X1 ONE Stop: 11/10/24 09:22 Last Admin: 11/10/24 09:33 Dose: 10 mg Albuterol (Albuterol Rt 2.5 Mg/0.5 Ml Nebu) 10 mg INH X1 ONE Stop: 11/10/24 11:15 Last Admin: 11/10/24 11:40 Dose: 10 mg Albuterol (Albuterol Rt 2.5 Mg/0.5 Ml Nebu) 10 mg INH X1 ONE Stop: 11/10/24 12:30 Last Admin: 11/10/24 12:34 Dose: 10 mg Epinephrine HCl (Epinephrine Inj 1 Mg/Ml Amp) 0.5 mg IM X1 ONE Stop: 11/10/24 12:29 Last Admin: 11/10/24 12:35 Dose: 0.5 mg Magnesium Sulfate (Magnesium Sulfate Ivpb) 2 gm in 50 mls @ 25 mls/hr IV X1 ONE Stop: 11/10/24 11:20 Last Infusion: 11/10/24 11:46 Dose: Infused Lactated Ringer's (Lactated Ringers) 1,000 mls @ 999 mls/hr IV .Q1H1M ONE Stop: 11/10/24 10:21 Last Infusion: 11/10/24 12:09 Dose: Infused Ceftriaxone Sodium/Dextrose (Rocephin/D5w 1gm Iv Premix) 1 gm in 50 mls @ 100 mls/hr IV STAT STA Stop: 11/10/24 13:01 Last Admin: 11/10/24 13:01 Dose: 100 mls/hr Azithromycin 500 mg/ Sodium (Chloride) 250 mls @ 250 mls/hr IV STAT STA Stop: 11/10/24 13:31 Ipratropium [place] (Ipratropium Rt 0.5 Mg/ 2.5 Ml Nebu) 1 mg INH X1 ONE Stop: 11/10/24 09:22 Last Admin: 11/10/24 09:34 Dose: 1 mg Methylprednisolone Sodium Succinate (Methylprednisolone Sod Succ 62.5 Mg/Ml 2ml Vial) 125 mg IVP X1 ONE Stop: 11/10/24 09:21 Last Admin: 11/10/24 09:26 Dose: 125 mg Sodium Chloride (Sodium Chloride Rt Ni 0.9% 3 Ml Nebu) 3 ml INH PRN PRN PRN Reason: SOLN Stop: 12/10/24 09:14 Sodium Chloride (Sodium Chloride Rt Ni 0.9% 3 Ml Nebu) 3 ml INH PRN PRN PRN Reason: SOLN Stop: 12/10/24 09:20 Sodium Chloride (Sodium Chloride Rt Ni 0.9% 3 Ml Nebu) 3 ml INH PRN PRN PRN Reason: SOLN Stop: 12/10/24 11:13 Assessment & Plan Plan 53-year-old male with a 10-year history of asthma admitted to the ICU for acute exacerbation in the setting of recurrent, poorly controlled symptoms despite frequent ED visits and suboptimal outpatient management. Neurology - stable Cardiovascular #Transient elevated blood pressure Likely secondary to respiratory distress, anxiety, or medication effects during acute asthma exacerbation. No known history of chronic hypertension. Diagnostic Test: - Highest BP was 159/85. - No chest pain, headache, vision changes or neurological symptoms. Treatment Plan: - Monitor blood pressure. - No antihypertensive treatments indicated at this time. #Sinus tachycardia Likely secondary to asthma exacerbation and treatment (epinephrine, albuterol/ipratropium). Diagnostic Test: - EKG: sinus tachycardia, QTc 465, no acute ST-T changes. Treatment Plan: - No specific treatment required at this time. Will treat asthma exacerbation, likely underlying cause. - Continue close cardiac monitoring. - Monitor electrolytes and replete as needed. - Maintain Mg > 2 and K > 4 to reduce arrhythmia risk. #Lactic acidosis Likely due to epinephrine and albuterol treatments. Currently no evidence of hypoperfusion. Diagnostic Test: - Lactic acid 8.7 Treatment Plan: - Monitor serial lactate levels to ensure downtrend. - Continue to treat asthma exacerbation. - Maintain adequate hydration. - Monitor renal function and urine output. - Monitor for cold, clammy skin, blue lips or nails, fever spikes. - No need for bicarbonate therapy at this time. Treatment Review: - LR 2L given. - Continue IV fluids as needed based on volume status and lactate trend. Respiratory #Status asthmaticus 10-year history of asthma (adult onset, no childhood asthma). Three prior episodes of asthma exacerbation that prompted ED visits. Currently on albuterol rescue inhaler only. Currently in respiratory distress, will closely monitor for signs of respiratory fatigue or decompensation. Treatment Plan: - Continue Duonebs (Albuterol 5mg and Ipratropium 5mg) Q2H. - Duoneb Q1H PRN for breakthrough symptoms. - Continue Solu-Medrol 60 mg IV Q6H. - Will monitor potassium levels Q4H given high does of albuterol. Replete potassium as necessary. - Follow-up with ABGs to assess for CO2 retention and respiratory failure. Next ABG scheduled for 11/10 at 9PM. - Close monitoring of patient's breathing pattern every 30 minutes due to concern for respiratory failure. - Prepare for emergent intubation if signs of impending respiratory failure (worsening hypoxia, hypercapnia, AMS, fatigue). If intubation is required, plan deep sedation to RASS -5 and paralytics. Treatment Review: - IV ketamine 60 mg x1 for bronchodilation. - Repeat Potassium level 3.4 from 3.9 on admission. Repleted with oral potassium 60mEq. - Received 2L bolus of LR x1. Patient complained of being thirsty, gave another 500 mL bolus of LR. GI and F/E/N #Stress ulcer prophylaxis Treatment Plan: - IV Protonix since albuterol can cause stress ulcers. - Keep NPO today. Renal #Concern for hypokalemia Possible in the setting of high dose albuterol. Diagnostic Test: - Admission potassium level was 3.9. - Repeat potassium level was 3.4. Treatment Plan: - Potassium level checks Q4H. - Continue to replete potassium as needed. - Keep Mg>2 and K>4, since magnesium plays a role in potassium absorption. Treatment Review: - Potassium 60mEq given. Heme #Leukocytosis Likely reactive. Diagnostic Test: - Admission WBC was 27.3. Treatment Plan: - Daily CBC and monitor levels. #Polycythemia Likely in the setting of hypoxia due to chronic asthma. Diagnostic Test: - Admission hemoglobin was 16.7. Treatment Plan: - Daily CBC and monitor levels. Endo #Hyperglycemia Diagnostic Test: - Glucose on admission was 186. Treatment Plan: - Insulin sliding scale. - Blood glucose checks Q6H and AM labs. - Check hemoglobin A1c in AM labs. ID #Community acquired pneumonia Diagnostic Test: - CXR: Early bibasilar pneumonia. Treatment Plan: - Continue Ceftriaxone 1 gram and Azithromycin 500 mg (11/10-). - Will discontinue Ceftriaxone if blood culture negative. - Monitor for fevers. Health Maintenance: DVT prophylaxis: Heparin 5000 SC. GI prophylaxis: IV Pantoprazole 40 mg. Diet: NPO, meds only. Vill[place]: none. Lines: Peripherals. CODE STATUS: Full code. Patient discussed with my senior resident Dr. Zamudio and attending, Dr. Polanco. Dominguez Ruffin DO, PGY 1 Attending Provider Attestation/Addendum Patient seen and examined with resident team. In brief this is a 53-year-old male who presented to the ER for shortness of breath and asthma exacerbation. The patient is extremely short of breath with increased work of breathing. He notes that he utilizes his rescue inhaler 2-3 times a day for the last several months. He is not on any other medication for asthma. He denies any smoking or drug abuse. On exam he is awake alert and oriented. He has increased work of breathing with use of accessory muscles. His diffuse wheezing on the left and diminished breath sounds with wheezing on the right. Heart rate regular and rhythmic tachycardic, abdomen is soft no rebound or guarding, no lower extremity edema pulses palpable with no clubbing or cyanosis. Patient is on 2 L FiO2 with sats of 90 to 93%. He has been given approximately 30 mg of albuterol in the ER along with magnesium and epi. Due to concern for status asthmaticus the ICU was contacted. He is admitted to the ICU and will be started on albuterol and ipratropium nebs 5 mg every 2 hours with a Q1 as needed. He was given ketamine for assistance with bronchodilation. On labs he was noted to have a lactic acidosis this is in the setting of having received both epi as well as significant doses of albuterol. He was given a liter of LR. Due to his tenuous respiratory status he will remain n.p.o. for now. He is also started on Solu- Medrol 60 mg IV Q6. Case discussed with ER and ICU team Labs, imaging records reviewed Approximately 60 critical care minutes required for evaluation, exam, review, intervention, discussion formulation of plan of care for this critically ill patient with status asthmaticus and respiratory distress
[2024-11-10 13:44] LABS: Base Excess -5 (-3-3); HCO3 20 mEq/L (20-26); Inspired Oxygen, FIO2 8 %; O2 Saturation 96 % (91-98); PCO2 34 mmHg (32.0-48.0); PO2 75 mmHg (83-108); pH, Arterial 7.38 (7.35-7.45)
[2024-11-10 13:46] LABS: Alanine Aminotransferase 32 U/L (10-49); Albumin, Serum 4.4 gm/dL (3.5-5.0); Albumin/Globulin Ratio 1.8 (1.2-2.2); Alkaline Phosphatase 94 U/L (46-116); Anion Gap 14 (7-16); Aspartate Amino Transferase 31 U/L (0-34); BUN/Creatinine Ratio 7 Ratio (12-20); Bilirubin,Total 0.8 mg/dL (0.3-1.2); Blood Urea Nitrogen 6 mg/dL (9-23); Calcium 9.0 mg/dL (8.3-10.6); Calcium (Corrected) 9.0 mg/dL (8.5-10.1); Carbon Dioxide 23.1 mMol/L (20.0-31.0); Chloride 103 mMol/L (98-107); Creatinine (Component) 0.9 mg/dL (0.6-1.3); Estimated Creatinine Clearance 77.3 mL/min (>60); Globulin 2.4 gm/dL (2.3-3.5); Glucose 186 mg/dL (74-106); Osmolality,Calculated 282 (275-295); Potassium 3.9 mMol/L (3.4-5.1); Procalcitonin 0.14 ng/ml (0.0-0.49); Sodium 140 mMol/L (136-145); Total Protein 6.8 gm/dL (5.7-8.2); eGFR > 60 See Note
[2024-11-10] MEDS: AZITHROMYCIN INJ 500 MG in SODIUM CHLORIDE 0.9% 250 ML 250 ML 250 MG IV (13:50)
[2024-11-10 14:03] LABS: Allen Test Performed/OK; Puncture Site Right Brachial
[2024-11-10] MEDS: KETAMINE 50 MG/ML VIAL 10 ML 60 MG IVP (14:39)
[2024-11-10 14:41] LABS: Lactate (Lactic Acid) 8.7 mMol/L (0.4-2.0)
[2024-11-10 14:56] LABS: Magnesium 2.3 mg/dL (1.6-2.6)
[2024-11-10] MEDS: ALBUTEROL RT 2.5 MG/0.5 ML NEBU 5 MG INH ×5 (15:04→22:14)
[2024-11-10] MEDS: IPRATROPIUM RT 0.5 MG/ 2.5 ML NEBU 2 MG INH ×5 (15:06→22:14)
[2024-11-10 15:08] LABS: Potassium 3.4 mMol/L (3.4-5.1)
[2024-11-10] MEDS: INSULIN LISPRO (AdmeLOG) 1 UNIT/0.01 ML UNIT SC (15:28)
[2024-11-10] MEDS: HEPARIN SOD INJ 5000 UNIT/ML VIAL SC ×2 (15:29→21:35)
[2024-11-10 16:04] LABS: Base Excess -9 (-3-3); HCO3 16 mEq/L (20-26); Inspired Oxygen, FIO2 21 %; O2 Saturation 99 % (91-98); PCO2 30 mmHg (32.0-48.0); PO2 111 mmHg (83-108); pH, Arterial 7.32 (7.35-7.45)
[2024-11-10 16:09] LABS: Allen Test Not Performed; Inspired O2, VO2 Liters 8 L/min; Puncture Site Right Brachial
[2024-11-10] MEDS: RINGERS LACTATED 500 ML 500 ML 999 ML IV (16:55)
[2024-11-10 17:23] LABS: Reflex Lactate? Y
[2024-11-10 17:54] LABS: Lactic Acid, 3 HR 11.4 mMol/L (0.4-2.0)
[2024-11-10 19:25] LABS: Potassium 4.3 mMol/L (3.4-5.1)
[2024-11-10] MEDS: DOXYCYCLINE INJ 100 MG in SODIUM CHLORIDE 0.9% (POP) 100 ML IV (19:31)
[2024-11-10] MEDS: BUDESONIDE RT 0.5 MG/2 ML NEBU 1 MG INH (20:13)
[2024-11-10] MEDS: RINGERS LACTATED 1000 ML 1,000 ML 100 ML IV (20:52)
[2024-11-10 21:01] LABS: Allen Test Performed/OK; Base Excess -11 (-3-3); HCO3 13 mEq/L (20-26); Inspired Oxygen, FIO2 21 %; O2 Saturation 98 % (91-98); PCO2 26 mmHg (32.0-48.0); PO2 96 mmHg (83-108); Puncture Site Right Radial; pH, Arterial 7.32 (7.35-7.45)
[2024-11-10 22:43] LABS: Lactate (Lactic Acid) 8.4 mMol/L (0.4-2.0)
--- NOTE | 2024-11-10 22:50 | EVENTNT_ITS ---
Documentation for date of: 11/10/24 Event Note Event Note: Overnight Cross-Cover Note * Received sign-out on a 53-year-old male with asthma exacerbation, high risk for respiratory decompensation and potential need for intubation. At sign-out, CO2 was noted to be down-trending. Day team requested continued monitoring unless a reversal in this trend occurred. * CXR reviewed overnight: no consolidation, consistent with a bronchitis pattern. Patient was started on Azithromycin by the day team. Antibiotics were transitioned to Doxycycline to optimize for bronchitis, and also continue to cover for atypical organisms. * Lactic acid at sign-out was 11.4, with no follow-up LA ordered by day team. Orders were only placed for daily LAs. This was addressed: q4h LA labs were initiated overnight to monitor trend until normalization. Patient was also given IV fluids overnight to assist with lactate clearance. * Patient was started on inhaled corticosteroids (ICS). As per [facility]IL[facility] guidelines, Budesonide ICS was initiated overnight along with scheduled Albuterol and IV Methylprednisolone to ensure optimal management. * Additional dose of IV Magnesium Sulfate was administered around 9:00 PM for bronchorelaxation. * Patient was counseled regarding clinical status, including risk of intubation. [place] interpretation services were used. Patient demonstrated understanding and provided consent for intubation if required. Plan: * Continue close monitoring of respiratory status, ABG, and lactic acid trends. * Maintain current IV and INH steroid, bronchodilator, and antibiotic regimen. * Reassess for any signs of decompensation or failure of medical therapy.
[2024-11-11] VITALS (62 sets, daily range): BP systolic 86–138; BP diastolic 55–94; PULSE 62–113; RESP 14–34; TEMP 36.3–37; O2SAT 91–100; BMI 28.3
[2024-11-11] MEDS: INSULIN LISPRO (AdmeLOG) 1 UNIT/0.01 ML UNIT SC ×3 (00:16→12:22)
[2024-11-11 01:41] LABS: Reflex Lactate? Y
[2024-11-11 02:15] LABS: Lactic Acid, 3 HR 7.5 mMol/L (0.4-2.0)
[2024-11-11] MEDS: IPRATROPIUM RT 0.5 MG/ 2.5 ML NEBU 2 MG INH ×5 (02:27→09:34)
[2024-11-11] MEDS: ALBUTEROL RT 2.5 MG/0.5 ML NEBU 5 MG INH ×6 (02:27→09:33)
[2024-11-11 02:59] LABS: Potassium 4.7 mMol/L (3.4-5.1)
[2024-11-11 04:17] LABS: Base Excess -6 (-3-3); HCO3 19 mEq/L (20-26); Inspired O2, VO2 Liters 4 L/min; Inspired Oxygen, FIO2 21 %; O2 Saturation 97 % (91-98); PCO2 33 mmHg (32.0-48.0); PO2 79 mmHg (83-108); pH, Arterial 7.36 (7.35-7.45)
[2024-11-11 04:18] LABS: Allen Test Performed/OK; Puncture Site Right Radial
[2024-11-11 05:16] LABS: Lactate (Lactic Acid) 4.9 mMol/L (0.4-2.0)
[2024-11-11 05:36] LABS: Basophils # (Auto) 0.0 Thou/mm3 (0.0-0.2); Basophils % (Auto) 0 % (0-2.5); Eosinophils # (Auto) 0.0 Thou/mm3 (0.0-0.5); Eosinophils % (Auto) 0 % (0-10); Hematocrit 44.9 % (41.0-53.0); Hemoglobin 15.1 g/dL (13.5-16.0); Immature Granulocytes Auto 0.10 Thou/mm3 (0.00-0.00); Lymphocytes # (Auto) 0.7 Thou/mm3 (1.0-4.8); Lymphocytes % (Auto) 4 % (10-50); Mean Corpuscular HGB Conc 33.6 g/dl (31.0-37.0); Mean Corpuscular Hemoglobin 32.1 pg (25.0-35.0); Mean Corpuscular Volume 96 fL (80-100); Monocytes # (Auto) 0.2 Thou/mm3 (0.0-0.8); Monocytes % (Auto) 1 % (0-12); Neutrophils # (Auto) 17.3 Thou/mm3 (1.8-7.7); Neutrophils % (Auto) 95 % (37-80); Nucleated Red Blood Cell # 0.00 Thou/mm3 (0.00-0.00); Nucleated Red Blood Cell % 0 /100 WBC (0); Platelet Count 149 Thou/mm3 (140-440); RDW Standard Deviation 45.2 fL (35.1-43.9); Red Blood Count 4.70 Miln/mm3 (4.50-5.90); White Blood Count 18.2 Thou/mm3 (3.8-10.6)
[2024-11-11 05:59] LABS: Alanine Aminotransferase 25 U/L (10-49); Albumin, Serum 4.1 gm/dL (3.5-5.0); Albumin/Globulin Ratio 1.8 (1.2-2.2); Alkaline Phosphatase 76 U/L (46-116); Anion Gap 14 (7-16); Aspartate Amino Transferase 24 U/L (0-34); BUN/Creatinine Ratio 8 Ratio (12-20); Bilirubin,Total 0.6 mg/dL (0.3-1.2); Blood Urea Nitrogen 6 mg/dL (9-23); Calcium 8.9 mg/dL (8.3-10.6); Calcium (Corrected) 8.9 mg/dL (8.5-10.1); Carbon Dioxide 18.2 mMol/L (20.0-31.0); Cardiac Risk Estimate 2.8 RATIO (4.0-6.7); Chloride 108 mMol/L (98-107); Cholesterol 216 mg/dL (132-200); Creatinine (Component) 0.8 mg/dL (0.6-1.3); Estimated Creatinine Clearance 86.9 mL/min (>60); Globulin 2.3 gm/dL (2.3-3.5); Glucose 166 mg/dL (74-106); HDL Cholesterol 76 mg/dL (40-60); LDL Cholesterol,Calculated 123 mg/dL (0-130); Magnesium 2.6 mg/dL (1.6-2.6); Osmolality,Calculated 281 (275-295); Phosphorous 2.5 mg/dL (2.4-5.1); Potassium 5.1 mMol/L (3.4-5.1); Sodium 140 mMol/L (136-145); Thyroid Stimulating Hormone 0.45 uIU/mL (0.55-4.78); Total Protein 6.4 gm/dL (5.7-8.2); Triglycerides 83 mg/dL (30-150); eGFR > 60 See Note
[2024-11-11] MEDS: HEPARIN SOD INJ 5000 UNIT/ML VIAL SC ×3 (06:34→21:43)
[2024-11-11] MEDS: BUDESONIDE RT 0.5 MG/2 ML NEBU 1 MG INH ×2 (07:29→23:21)
[2024-11-11 07:50] LABS: Glucose Estimated Average 108 mg/dL (80-131); Hemoglobin A1C 5.4 % Hgb (4.8-6.0)
[2024-11-11 08:11] LABS: Reflex Lactate? Y
[2024-11-11] MEDS: cefTRIAXone/D5w 1gm IV premix 1 GM/50 ML BAG IV (08:44)
[2024-11-11] MEDS: DOXYCYCLINE INJ 100 MG in SODIUM CHLORIDE 0.9% (POP) 100 ML IV (08:44)
[2024-11-11 09:10] LABS: Lactic Acid, 3 HR 3.0 mMol/L (0.4-2.0)
--- NOTE | 2024-11-11 09:36 | PC.SS ---
Patient Chet Valladares is a 53 Year old male admitted for Asthma Exacerbation. SS met with patient at bedside to discuss discharge plan and verify demographic information. Patient reports he lives at home with his , Osiris Jules who he reports is his surrogate decision maker, [phone]. Patient reports he does not utilize any source of DME to assist with ambulation. Patient is able to complete all ADL's independently. PCP is Calvin Nina. At time of discharge patient will return back home. Patient's will provide transportation. Discharge plan: Home Next of Kin: , Osiris Jules
--- NOTE | 2024-11-11 10:59 | ESPR_ITS ---
<Statement entered by Blade Conway MD - 11/11/24 13:30> Patient seen and examined at bedside. I discussed and supervised with the learning and development intern physician who took care of this patient. I personally saw and examined the patient. I agree with most of the assessment and plan. Patient received DuoNebs throughout the night in addition to IV steroids. Receiving antibiotics, Rocephin and azithromycin. Patient showed significant improvement, resting comfortably, saturating well on 2 L O2. Denies shortness of breath or work of breathing at this time, states his symptoms have improved greatly. Expiratory wheezing more prominent on right side. Will decrease frequency of IV steroids and breathing treatments, decrease dosage of albuterol from 5 mg to 2.5 mg. Lactic acidosis continue to downtrend, down to 2.1. Given patient's improvement in clinical status, stable for downgrade to floors for further monitoring. Plan of care discussed with attending Dr. Polanco. Blade Conway MD PGY-2 Documentation for date of: 11/11/24 Subjective Subjective Interval history: History of present illness: 53-year-old male with a past medical history of asthma, diagnosed 10 years ago on rescue inhaler (with no history of childhood asthma), presents to the ED on 11/10/2024 with acute onset shortness of breath that began around 1:00 AM. He reports that his asthma has worsened over the past five years. He uses his albuterol inhaler approximately three times daily. He reports having had similar symptoms in the past and has visited the ED three times previously for asthma exacerbations. He also reports one episode of non-bloody, non-bilious vomiting this morning. Associated symptoms include rhinorrhea, decreased appetite, bloating with meals, and dark diarrhea for the past two days. He notes a 10-pound unintentional weight loss over the past two months. He denies fever, chills, cough, recent illness, recent travel, or chest pain. The patient moved to [place] 11 years ago and was diagnosed with asthma after moving. Prior [facility] ED visits (per chart review) for asthma exacerbation include: 06/03/2024, 09/25/2024, 10/27/2024. Patient admitted to ICU for recurrent, poorly controlled asthma exacerbations requiring frequent ED visits. Interval History: 11/11/2024: The patient continued receiving Duonebs every 2 hours (Q2H) overnight and did not require additional treatments for breakthrough symptoms. He remained clinically stable throughout the night. The patient was transitioned to nasal cannula from BiPAP at 2:30 PM on 11/10, requiring up to 8L of oxygen. Today, his oxygen requirement has significantly improved?currently on 2L with oxygen saturation at 99%. He is no longer in respiratory distress, shows no use of accessory muscles, and is able to speak in full sentences. Lung exam reveals mild wheezing with improved aeration of both lung cedillo. Lactic acidosis has improved following administration of IV fluids, including 1L and 500cc boluses by night team. Lactate levels have decreased from 8.7 at admission to 3.0. ABG values shows improvement compared to prior. Potassium levels remained within normal limits, no repletion was necessary overnight. Overnight, adjustments were made: - Added Budesonide 1 mg nebulized. - Discontinued Azithromycin 500 mg. - Started Doxycycline [address] Polanco, Azithromycin 500 mg was restarted. Doxycycline 100 mg BID was discontinued. Solu-Medrol dose decreased frequency from 60 mg Q6H to Q12H. Patient no longer NPO, diet can be started. Exam Vital Signs Temp Pulse Resp BP Pulse Ox O2 Del Method O2 Flow Rate 97.4 F 106 H 22 H 120/70 99 Nasal Cannula 2 11/11/24 04:00 11/11/24 09:38 11/11/24 09:38 11/11/24 06:30 11/11/24 09:38 11/10/24 20:00 11/11/24 09:38 FiO2 50 11/10/24 11:40 Narrative Exam Physical Exam General: Awake, no respiratory distress, on NC 2L. Head: Normocephalic, atraumatic. Eyes: Pupils equally round and reactive to light. Anicteric. Mouth/Throat: moist mucous membranes. Heart: mild tachycardia (improved from day before), regular rhythm, no murmurs. No JVD. Lungs: mild tachypnea (improved from day before), no labored breathing, no accessory muscles use, mild wheezing with improved aeration of both lung cedillo. Abdomen: Soft, distended. No guarding or rebound tenderness. Neurologic: Alert and oriented x4, no gross neurological deficit, and patient able to move all 4 extremities. Extremities: No edema. Posterior tibial pulses are 2+ bilaterally. 2+ radial pulse bilaterally. No clubbing or cyanosis. No mottling. Skin: olga on left upper back. Objective Labs 11/12/24 04:36 11/12/24 04:36 Labs: Laboratory Results - last 24 hr 11/10/24 11/10/24 11/10/24 12:45 13:40 14:15 WBC 27.3 H RBC 5.14 Hgb 16.7 H Hct 48.7 MCV 95 MCH 32.5 MCHC 34.3 RDW Std Deviation 43.1 Plt Count 214 D Neut % (Auto) 97 H Lymph % (Auto) 1 L [place] % (Auto) 1 Eos % (Auto) 0 Baso % (Auto) 0 Neut # (Auto) 26.5 H Lymph # (Auto) 0.4 L [place] # (Auto) 0.3 Eos # (Auto) 0.0 Baso # (Auto) 0.1 Immature Gran # (Auto) 0.16 H Absolute Nucleated RBC 0.00 Immature Gran % 1 H Nucleated RBC % 0 Puncture Site Right Brachial ABG pH 7.38 ABG pCO2 34 ABG pO2 75 L ABG HCO3 20 ABG O2 Saturation 96 ABG Base Excess -5 L Oxygen Liter Flow FiO2 8 Sodium 140 Potassium 3.9 3.4 D Chloride 103 Carbon Dioxide 23.1 Anion Gap 14 BUN 6 L Creatinine 0.9 Estim Creat Clear Calc 77.3 eGFR > 60 BUN/Creatinine Ratio 7 L Glucose [address] Glu mg/dL Hemoglobin A1c Calculated Osmolality 282 Lactic Acid 8.7 H* Calcium 9.0 Corrected Calcium 9.0 Phosphorus Magnesium 2.3 Total Bilirubin 0.8 AST 31 ALT 32 Alkaline Phosphatase 94 Total Protein 6.8 Albumin 4.4 Globulin 2.4 Albumin/Globulin Ratio 1.8 Triglycerides Cholesterol LDL Cholesterol, Calc HDL Cholesterol Cholesterol/HDL Ratio Procalcitonin 0.14 TSH 11/10/24 11/10/24 11/10/24 15:54 17:42 19:08 WBC RBC Hgb Hct MCV MCH MCHC RDW Std Deviation Plt Count Neut % (Auto) Lymph % (Auto) [place] % (Auto) Eos % (Auto) Baso % (Auto) Neut # (Auto) Lymph # (Auto) [place] # (Auto) Eos # (Auto) Baso # (Auto) Immature Gran # (Auto) Absolute Nucleated RBC Immature Gran % Nucleated RBC % Puncture Site Right Brachial ABG pH 7.32 L ABG pCO2 30 L ABG pO2 111 H D ABG HCO3 16 L ABG O2 Saturation 99 H ABG Base Excess -9 L Oxygen Liter Flow 8 FiO2 21 Sodium Potassium 4.3 D Chloride Carbon Dioxide Anion Gap BUN Creatinine Estim Creat Clear Calc eGFR BUN/Creatinine Ratio Glucose Estimated Ave Glu mg/dL Hemoglobin A1c Calculated Osmolality Lactic Acid 11.4 H* Calcium Corrected Calcium Phosphorus Magnesium Total Bilirubin AST ALT Alkaline Phosphatase Total Protein Albumin Globulin Albumin/Globulin Ratio Triglycerides Cholesterol LDL Cholesterol, Calc HDL Cholesterol Cholesterol/HDL Ratio Procalcitonin TSH 11/10/24 11/10/24 11/11/24 20:53 22:29 02:02 WBC RBC Hgb Hct MCV MCH MCHC RDW Std Deviation Plt Count Neut % (Auto) Lymph % (Auto) [place] % (Auto) Eos % (Auto) Baso % (Auto) Neut # (Auto) Lymph # (Auto) [place] # (Auto) Eos # (Auto) Baso # (Auto) Immature Gran # (Auto) Absolute Nucleated RBC Immature Gran % Nucleated RBC % Puncture Site Right Radial ABG pH 7.32 L ABG pCO2 26 L ABG pO2 96 ABG HCO3 13 L ABG O2 Saturation 98 ABG Base Excess -11 L Oxygen Liter Flow FiO2 21 Sodium Potassium 4.7 Chloride Carbon Dioxide Anion Gap BUN Creatinine Estim Creat Clear Calc eGFR BUN/Creatinine Ratio Glucose Estimated Ave Glu mg/dL Hemoglobin A1c Calculated Osmolality Lactic Acid 8.4 H* 7.5 H* Calcium Corrected Calcium Phosphorus Magnesium Total Bilirubin AST ALT Alkaline Phosphatase Total Protein Albumin Globulin Albumin/Globulin Ratio Triglycerides Cholesterol LDL Cholesterol, Calc HDL Cholesterol Cholesterol/HDL Ratio Procalcitonin TSH 11/11/24 11/11/24 11/11/24 04:05 04:58 08:57 WBC 18.2 H D RBC 4.70 Hgb 15.1 Hct 44.9 MCV 96 MCH 32.1 MCHC 33.6 RDW Std Deviation 45.2 H Plt Count 149 D Neut % (Auto) 95 H Lymph % (Auto) 4 L [place] % (Auto) 1 Eos % (Auto) 0 Baso % (Auto) 0 Neut # (Auto) 17.3 H Lymph # (Auto) 0.7 L [place] # (Auto) 0.2 Eos # (Auto) 0.0 Baso # (Auto) 0.0 Immature Gran # (Auto) 0.10 H Absolute Nucleated RBC 0.00 Immature Gran % 1 H Nucleated RBC % 0 Puncture Site Right Radial ABG pH 7.36 ABG pCO2 33 ABG pO2 79 L ABG HCO3 19 L ABG O2 Saturation 97 ABG Base Excess -6 L Oxygen Liter Flow 4 FiO2 21 Sodium 140 Potassium 5.1 Chloride 108 H Carbon Dioxide 18.2 L Anion Gap 14 BUN 6 L Creatinine 0.8 Estim Creat Clear Calc 86.9 eGFR > 60 BUN/Creatinine Ratio 8 L Glucose [address] Glu mg/dL 108 Hemoglobin A1c 5.4 Calculated Osmolality 281 Lactic Acid 4.9 H* 3.0 H Calcium 8.9 Corrected Calcium 8.9 Phosphorus 2.5 Magnesium 2.6 Total Bilirubin 0.6 AST 24 ALT 25 Alkaline Phosphatase 76 Total Protein 6.4 Albumin 4.1 Globulin 2.3 Albumin/Globulin Ratio 1.8 Triglycerides 83 Cholesterol 216 H LDL Cholesterol, Calc 123 HDL Cholesterol 76 H Cholesterol/HDL Ratio 2.8 L Procalcitonin TSH 0.45 L ABG Interpretation ABG results: 11/10/24 11/10/24 11/10/24 13:40 15:54 20:53 ABG pH 7.38 7.32 L 7.32 L ABG pCO2 34 30 L 26 L ABG pO2 75 L 111 H D 96 ABG HCO3 20 16 L 13 L ABG O2 Saturation 96 99 H 98 ABG Base Excess -5 L -9 L -11 L 11/11/24 04:05 ABG pH 7.36 ABG pCO2 33 ABG pO2 79 L ABG HCO3 19 L ABG O2 Saturation 97 ABG Base Excess -6 L Quality Measures Quality Measures none Assessment & Plan Assessment Current Active Medications: Generic Name Dose Route Start Last Admin Trade Name Freq PRN Reason Stop Dose Admin Acetaminophen 650 mg 11/10/24 13:29 Acetaminophen 325 Mg Tablet PO 12/10/24 13:28 Q6H PRN Fever >101.5 Acetaminophen 650 mg 11/10/24 13:29 Acetaminophen 325 Mg Tablet PO 12/10/24 13:28 Q6H PRN PAIN SCALE 1-3 (mild Albuterol 2.5 mg 11/11/24 11:00 Albuterol Rt 2.5 Mg/0.5 Ml Nebu INH 12/11/24 10:59 Q4HRRT JUAN Albuterol/Ipratropium 3 ml 11/11/24 12:00 Albuterol/Ipratropium (Duoneb) Rt Ni 3 Ml Nebu INH 12/11/24 11:59 Q2HR JUAN Budesonide 1 mg 11/10/24 19:15 11/11/24 07:29 Budesonide Rt 0.5 Mg/2 Ml Nebu INH 12/10/24 19:14 1 mg BIDRT JUAN Administration Dextrose 25 ml 11/10/24 13:59 Dextrose 50%-Water Inj 50 Ml Syringe IV 12/10/24 13:58 Q15MIN PRN BG 50-70 responsive npo pt Dextrose 50 ml 11/10/24 13:59 Dextrose 50%-Water Inj 50 Ml Syringe IV 12/10/24 13:58 Q15MIN PRN BG <50 OR BG <70 & pt unresponsive Glucagon 1 mg 11/10/24 13:59 Glucagon Inj 1 Mg Vial IM Q15MIN PRN BG <70, and no IV access Heparin Sodium (Porcine) 5,000 unit 11/10/24 14:00 11/11/24 06:34 Heparin Sod Inj 5000 Unit/Ml Vial SC 11/24/24 13:59 5,000 unit Q8HR JUAN Administration Ceftriaxone Sodium/Dextrose 1 gm in 50 mls @ 100 mls/hr 11/11/24 09:00 11/11/24 08:44 Rocephin/D5w 1gm Iv Premix IV 11/18/24 08:59 100 mls/hr QDAY JUAN Administration Azithromycin 500 mg/ Sodium 250 mls @ 250 mls/hr 11/11/24 09:48 Chloride IV 11/18/24 09:47 QDAY JUAN Insulin Human Lispro 0 unit 11/10/24 14:00 11/11/24 06:33 Insulin Lispro (Admelog) 1 Unit/0.01 Ml Unit SC 12/10/24 13:59 1 unit Q6HR JUAN Administration Protocol Methylprednisolone Sodium Succinate 60 mg 11/11/24 21:00 Methylprednisolone Sod Succ 40 Mg/Ml Vial IVP 11/18/24 20:59 Q12HR JUAN Ondansetron HCl 4 mg 11/10/24 13:29 Ondansetron Inj 2 Mg/Ml Inj 2 Ml IVP 12/10/24 13:28 Q6H PRN NAUSEA OR VOMITING Protocol Pantoprazole Sodium 40 mg 11/10/24 13:45 11/11/24 08:43 Pantoprazole Inj 40 Mg Vial IVP 12/10/24 13:44 40 mg QDAY JUAN Administration Sodium Chloride 3 ml 11/10/24 12:29 11/10/24 15:04 Sodium Chloride Rt Ni 0.9% 3 Ml Nebu INH 12/10/24 12:28 3 ml PRN PRN Administration SOLN Plan Plan 53-year-old male with a 10-year history of asthma admitted to the ICU for acute exacerbation in the setting of recurrent, poorly controlled symptoms despite frequent ED visits and suboptimal outpatient management. Neurology - stable Cardiovascular #Transient elevated blood pressure (resolved) Likely secondary to respiratory distress, anxiety, or medication effects during acute asthma exacerbation. No known history of chronic hypertension. Diagnostic Test: - Highest BP was 159/85. - No chest pain, headache, vision changes or neurological symptoms. Treatment Plan: - Monitor blood pressure. - No antihypertensive treatments indicated at this time. #Sinus tachycardia (improving) Likely secondary to asthma exacerbation and treatment (epinephrine, albuterol/ipratropium). Diagnostic Test: - EKG: sinus tachycardia, QTc 465, no acute ST-T changes. Treatment Plan: - No specific treatment required at this time. Will treat asthma exacerbation, likely underlying cause. - Continue close cardiac monitoring. - Monitor electrolytes and replete as needed. - Maintain Mg > 2 and K > 4 to reduce arrhythmia risk. #Lactic acidosis (downtrending) Likely due to epinephrine and albuterol treatments. Currently no evidence of hypoperfusion. Diagnostic Test: - Lactic acid 8.7 --> 11.4 --> 8.4 --> 7.5 --> 4.9 --> 3.0. Treatment Plan: - Continue to treat asthma exacerbation. - Maintain adequate hydration. - Monitor renal function and urine output. - Monitor for cold, clammy skin, blue lips or nails, fever spikes. - No need for bicarbonate therapy at this time. Treatment Review: - LR 2L given. Additional 1.5L given overnight. - Continue IV fluids as needed based on volume status and lactate trend. - Serial lactate levels were monitored until downtrend. Respiratory #Status asthmaticus (resolved) 10-year history of asthma (adult onset, no childhood asthma). Three prior episodes of asthma exacerbation that prompted ED visits. Currently on albuterol rescue inhaler only. Currently in respiratory distress, will closely monitor for signs of respiratory fatigue or decompensation. Treatment Plan: - Continue Duonebs (Albuterol 2.5mg and Ipratropium 5mg) Q4H. - Duoneb Q2H PRN for breakthrough symptoms. - Continue Solu-Medrol 60 mg IV Q12H. - Budesonide 1 mg nebulized. Treatment Review: - IV ketamine 60 mg x1 for bronchodilation. - Repeat Potassium level 3.4 from 3.9 on admission. Repleted with oral potassium 60mEq. - Monitored potassium levels Q4H given high doses of albuterol. Discontinued checks since potassium within normal range for the past 24 hours. - Received 2L bolus of LR x1. Patient complained of being thirsty, gave another 500 mL bolus of LR. - Changed Duonebs (Albuterol 5mg and Ipratropium 5mg) Q2H to Duonebs (Albuterol 2.5mg and Ipratropium 5mg) Q4H. - Changed Duonebs Q1H PRN to Q2H for breakthrough symptoms. - Changed Solu-Medrol 60 mg Q6H to Q12H. - ABG values are trending in the right direction. Most recent ABG pH 7.36/pCO2 33/pO2 79/HCO3 19/O2 Sat 97%. GI and F/E/N #Stress ulcer prophylaxis Treatment Plan: - IV Protonix since albuterol can cause stress ulcers. - Regular diet. Renal #Concern for hypokalemia Possible in the setting of high dose albuterol. Diagnostic Test: - Admission potassium level was 3.9. - Repeat potassium level was 3.4. - Potassium levels within normal range since admission. Treatment Plan: - Discontinue potassium level checks Q4H. - Continue to replete potassium as needed. - Keep Mg>2 and K>4, since magnesium plays a role in potassium absorption. Treatment Review: - Potassium 60mEq given. Heme #Leukocytosis (downtrending) Likely reactive. Diagnostic Test: - Admission WBC was 27.3 --> 18.2. Treatment Plan: - Daily CBC and monitor levels. #Polycythemia (resolved) Likely in the setting of hypoxia due to chronic asthma. Diagnostic Test: - Admission hemoglobin was 16.7. Treatment Plan: - Daily CBC and monitor levels. Endo #Hyperglycemia Diagnostic Test: - Glucose on admission was 186. - Hemoglobin A1c 5.4. Treatment Plan: - Continue Insulin sliding scale. ID #Community acquired pneumonia Diagnostic Test: - CXR: Early bibasilar pneumonia. Treatment Plan: - Continue Ceftriaxone 1 gram and Azithromycin 500 mg (11/10-). - Will discontinue Ceftriaxone if blood culture negative. - Monitor for fevers. Treatment Plan: Health Maintenance: Deposition: Tele Bed DVT prophylaxis: Heparin 5000 SC. GI prophylaxis: IV Pantoprazole 40 mg. Diet: Regular [place]: none. Lines: Peripherals. CODE STATUS: Full code. Patient discussed with my senior resident Dr. Conway and attending, Dr. Polanco. Dominguez Ruffin DO, PGY 1 Attending Provider Attestation/Addendum pt seen and examined, agree with above. in brief this is a 54yo M admitted to the ICU for status asthmaticus. He was started on nebs q2hrs with q1prn and solumedrol 60mg q6 IV. This AM he appears much better. There is no increase in WOB and his lung cedillo sound improved with minimal wheezing. He is able to complete full sentences and no longer has use of accessory muscles. His nebs are changed to q4hr with q2prn and solumedrol decreased to 60mg q12. He will be started on trelegy ellipta for LABA/LAMA/ICS for his severe persistent asthma at baseline. Will cont with nebs and steroids for his acute flare. He is on ceftri/azithro for ? of changes on CXR though it is noted that his procal is neg and therefore he is less likely to have a bacterial infection. He also denies any prodromal sxs. If cx neg at 48hr will consider stopping abx. case d/w ICU team labs, imaging,records reviewed ~36min required for eval, exam, review, intervention, discussion and formulation of POC
[2024-11-11] MEDS: AZITHROMYCIN INJ 500 MG in SODIUM CHLORIDE 0.9% 250 ML 250 ML 250 MG IV (11:07)
[2024-11-11 11:56] LABS: Lactate (Lactic Acid) 2.1 mMol/L (0.4-2.0)
--- NOTE | 2024-11-11 12:38 | ESPR_ITS ---
<Statement entered by Magali Prince MD - 11/11/24 15:46> I discussed with and supervised the internal audit senior manager physician who took care of this patient. I personally saw and examined the patient and discussed the assessment and plan with the entire medicine team, including my attending , I agree with the assessment and plan as documented below Magali Prince M.D. PGY-3 Disclaimer: Despite multiple revisions, due to the dictation software being used, the document bellow may not be free of grammatical errors including phonetic/typographic errors. However, this does not deter from our commitment to providing health care in the patient's best interest in mind. Documentation for date of: 11/11/24 Subjective Subjective Interval history: Patient seen at bedside. Patient received DuoNebs throughout the night in addition to IV steroids and receiving antibiotics including Rocephin and azithromycin. Patient is comfortable at rest and not complaining of any shortness of breath and feels like the symptoms have greatly improved. Exam Vital Signs Temp Pulse Resp BP Pulse Ox O2 Del Method O2 Flow Rate 97.4 F 107 H 23 H 113/71 96 Nasal Cannula 2 11/11/24 04:00 11/11/24 12:30 11/11/24 12:30 11/11/24 12:30 11/11/24 12:30 11/10/24 20:00 11/11/24 09:38 FiO2 50 11/10/24 11:40 Narrative Exam General: Awake, no respiratory distress, on NC 2L. Head: Normocephalic, atraumatic. Eyes: Pupils equally round and reactive to light. Anicteric. Mouth/Throat: moist mucous membranes. CVS: mild tachycardia, regular rhythm, no murmurs. No JVD. Resp: no labored breathing, no accessory muscles use, mild wheezing with improved aeration of both lung [place] particularly to R lung Abdomen: Soft, distended. No guarding or rebound tenderness. Neurologic: Alert and oriented x4, no gross neurological deficit, and patient able to move all 4 extremities. Extremities: No edema. Posterior tibial pulses are 2+ bilaterally. 2+ radial pulse bilaterally. No clubbing or cyanosis. No mottling. Objective Labs 11/12/24 04:36 11/12/24 04:36 Labs: Laboratory Results - last 24 hr 11/10/24 11/10/24 11/10/24 12:45 13:40 14:15 WBC 27.3 H RBC 5.14 Hgb 16.7 H Hct 48.7 MCV 95 MCH 32.5 MCHC 34.3 RDW Std Deviation 43.1 Plt Count 214 D Neut % (Auto) 97 H Lymph % (Auto) 1 L [place] % (Auto) 1 Eos % (Auto) 0 Baso % (Auto) 0 Neut # (Auto) 26.5 H Lymph # (Auto) 0.4 L [place] # (Auto) 0.3 Eos # (Auto) 0.0 Baso # (Auto) 0.1 Immature Gran # (Auto) 0.16 H Absolute Nucleated RBC 0.00 Immature Gran % 1 H Nucleated RBC % 0 Puncture Site Right Brachial ABG pH 7.38 ABG pCO2 34 ABG pO2 75 L ABG HCO3 20 ABG O2 Saturation 96 ABG Base Excess -5 L Oxygen Liter Flow FiO2 8 Sodium 140 Potassium 3.9 3.4 D Chloride 103 Carbon Dioxide 23.1 Anion Gap 14 BUN 6 L Creatinine 0.9 Estim Creat Clear Calc 77.3 eGFR > 60 BUN/Creatinine Ratio 7 L Glucose [address] Glu mg/dL Hemoglobin A1c Calculated Osmolality 282 Lactic Acid 8.7 H* Calcium 9.0 Corrected Calcium 9.0 Phosphorus Magnesium 2.3 Total Bilirubin 0.8 AST 31 ALT 32 Alkaline Phosphatase 94 Total Protein 6.8 Albumin 4.4 Globulin 2.4 Albumin/Globulin Ratio 1.8 Triglycerides Cholesterol LDL Cholesterol, Calc HDL Cholesterol Cholesterol/HDL Ratio Procalcitonin 0.14 TSH 11/10/24 11/10/24 11/10/24 15:54 17:42 19:08 WBC RBC Hgb Hct MCV MCH MCHC RDW Std Deviation Plt Count Neut % (Auto) Lymph % (Auto) [place] % (Auto) Eos % (Auto) Baso % (Auto) Neut # (Auto) Lymph # (Auto) [place] # (Auto) Eos # (Auto) Baso # (Auto) Immature Gran # (Auto) Absolute Nucleated RBC Immature Gran % Nucleated RBC % Puncture Site Right Brachial ABG pH 7.32 L ABG pCO2 30 L ABG pO2 111 H D ABG HCO3 16 L ABG O2 Saturation 99 H ABG Base Excess -9 L Oxygen Liter Flow 8 FiO2 21 Sodium Potassium 4.3 D Chloride Carbon Dioxide Anion Gap BUN Creatinine Estim Creat Clear Calc eGFR BUN/Creatinine Ratio Glucose Estimated Ave Glu mg/dL Hemoglobin A1c Calculated Osmolality Lactic Acid 11.4 H* Calcium Corrected Calcium Phosphorus Magnesium Total Bilirubin AST ALT Alkaline Phosphatase Total Protein Albumin Globulin Albumin/Globulin Ratio Triglycerides Cholesterol LDL Cholesterol, Calc HDL Cholesterol Cholesterol/HDL Ratio Procalcitonin TSH 11/10/24 11/10/24 11/11/24 20:53 22:29 02:02 WBC RBC Hgb Hct MCV MCH MCHC RDW Std Deviation Plt Count Neut % (Auto) Lymph % (Auto) [place] % (Auto) Eos % (Auto) Baso % (Auto) Neut # (Auto) Lymph # (Auto) [place] # (Auto) Eos # (Auto) Baso # (Auto) Immature Gran # (Auto) Absolute Nucleated RBC Immature Gran % Nucleated RBC % Puncture Site Right Radial ABG pH 7.32 L ABG pCO2 26 L ABG pO2 96 ABG HCO3 13 L ABG O2 Saturation 98 ABG Base Excess -11 L Oxygen Liter Flow FiO2 21 Sodium Potassium 4.7 Chloride Carbon Dioxide Anion Gap BUN Creatinine Estim Creat Clear Calc eGFR BUN/Creatinine Ratio Glucose Estimated Ave Glu mg/dL Hemoglobin A1c Calculated Osmolality Lactic Acid 8.4 H* 7.5 H* Calcium Corrected Calcium Phosphorus Magnesium Total Bilirubin AST ALT Alkaline Phosphatase Total Protein Albumin Globulin Albumin/Globulin Ratio Triglycerides Cholesterol LDL Cholesterol, Calc HDL Cholesterol Cholesterol/HDL Ratio Procalcitonin TSH 11/11/24 11/11/24 11/11/24 04:05 04:58 08:57 WBC 18.2 H D RBC 4.70 Hgb 15.1 Hct 44.9 MCV 96 MCH 32.1 MCHC 33.6 RDW Std Deviation 45.2 H Plt Count 149 D Neut % (Auto) 95 H Lymph % (Auto) 4 L [place] % (Auto) 1 Eos % (Auto) 0 Baso % (Auto) 0 Neut # (Auto) 17.3 H Lymph # (Auto) 0.7 L [place] # (Auto) 0.2 Eos # (Auto) 0.0 Baso # (Auto) 0.0 Immature Gran # (Auto) 0.10 H Absolute Nucleated RBC 0.00 Immature Gran % 1 H Nucleated RBC % 0 Puncture Site Right Radial ABG pH 7.36 ABG pCO2 33 ABG pO2 79 L ABG HCO3 19 L ABG O2 Saturation 97 ABG Base Excess -6 L Oxygen Liter Flow 4 FiO2 21 Sodium 140 Potassium 5.1 Chloride 108 H Carbon Dioxide 18.2 L Anion Gap 14 BUN 6 L Creatinine 0.8 Estim Creat Clear Calc 86.9 eGFR > 60 BUN/Creatinine Ratio 8 L Glucose [address] Glu mg/dL 108 Hemoglobin A1c 5.4 Calculated Osmolality 281 Lactic Acid 4.9 H* 3.0 H Calcium 8.9 Corrected Calcium 8.9 Phosphorus 2.5 Magnesium 2.6 Total Bilirubin 0.6 AST 24 ALT 25 Alkaline Phosphatase 76 Total Protein 6.4 Albumin 4.1 Globulin 2.3 Albumin/Globulin Ratio 1.8 Triglycerides 83 Cholesterol 216 H LDL Cholesterol, Calc 123 HDL Cholesterol 76 H Cholesterol/HDL Ratio 2.8 L Procalcitonin TSH 0.45 L ABG Interpretation ABG results: 11/10/24 11/10/24 11/10/24 13:40 15:54 20:53 ABG pH 7.38 7.32 L 7.32 L ABG pCO2 34 30 L 26 L ABG pO2 75 L 111 H D 96 ABG HCO3 20 16 L 13 L ABG O2 Saturation 96 99 H 98 ABG Base Excess -5 L -9 L -11 L 11/11/24 04:05 ABG pH 7.36 ABG pCO2 33 ABG pO2 79 L ABG HCO3 19 L ABG O2 Saturation 97 ABG Base Excess -6 L Quality Measures Quality Measures none Assessment & Plan Assessment Current Active Medications: Generic Name Dose Route Start Last Admin Trade Name Freq PRN Reason Stop Dose Admin Acetaminophen 650 mg 11/10/24 13:29 Acetaminophen 325 Mg Tablet PO 12/10/24 13:28 Q6H PRN Fever >101.5 Acetaminophen 650 mg 11/10/24 13:29 Acetaminophen 325 Mg Tablet PO 12/10/24 13:28 Q6H PRN PAIN SCALE 1-3 (mild Albuterol/Ipratropium 3 ml 11/11/24 15:00 Albuterol/Ipratropium (Duoneb) Rt Ni 3 Ml Nebu INH 12/11/24 14:59 Q4HRRT JUAN Albuterol/Ipratropium 3 ml 11/11/24 11:20 Albuterol/Ipratropium (Duoneb) Rt Ni 3 Ml Nebu INH 12/11/24 11:19 Q2HR PRN SOB/wheezing (breakthrough) Dextrose 25 ml 11/10/24 13:59 Dextrose 50%-Water Inj 50 Ml Syringe IV 12/10/24 13:58 Q15MIN PRN BG 50-70 responsive npo pt Dextrose 50 ml 11/10/24 13:59 Dextrose 50%-Water Inj 50 Ml Syringe IV 12/10/24 13:58 Q15MIN PRN BG <50 OR BG <70 & pt unresponsive Fluticasone/Umeclidinium/Vilanterol 1 puff 11/11/24 12:00 Fluticasone/Umeclidin/Vilanterol 200-62.5-25 Mcg Inhaler INH 12/11/24 11:59 QDAY JUAN Glucagon 1 mg 11/10/24 13:59 Glucagon Inj 1 Mg Vial IM Q15MIN PRN BG <70, and no IV access Heparin Sodium (Porcine) 5,000 unit 11/10/24 14:00 11/11/24 06:34 Heparin Sod Inj 5000 Unit/Ml Vial SC 11/24/24 13:59 5,000 unit Q8HR JUAN Administration Ceftriaxone Sodium/Dextrose 1 gm in 50 mls @ 100 mls/hr 11/11/24 09:00 11/11/24 08:44 Rocephin/D5w 1gm Iv Premix IV 11/18/24 08:59 100 mls/hr QDAY JUAN Administration Azithromycin 500 mg/ Sodium 250 mls @ 250 mls/hr 11/11/24 09:48 11/11/24 11:07 Chloride IV 11/18/24 09:47 250 mls/hr QDAY JUAN Administration Insulin Human Lispro 0 unit 11/10/24 14:00 11/11/24 12:22 Insulin Lispro (Admelog) 1 Unit/0.01 Ml Unit SC 12/10/24 13:59 1 unit Q6HR JUAN Administration Protocol Methylprednisolone Sodium Succinate 60 mg 11/11/24 21:00 Methylprednisolone Sod Succ 40 Mg/Ml Vial IVP 11/18/24 20:59 Q12HR JUAN Ondansetron HCl 4 mg 11/10/24 13:29 Ondansetron Inj 2 Mg/Ml Inj 2 Ml IVP 12/10/24 13:28 Q6H PRN NAUSEA OR VOMITING Protocol Pantoprazole Sodium 40 mg 11/10/24 13:45 11/11/24 08:43 Pantoprazole Inj 40 Mg Vial IVP 12/10/24 13:44 40 mg QDAY JUAN Administration Sodium Chloride 3 ml 11/10/24 12:29 11/10/24 15:04 Sodium Chloride Rt Ni 0.9% 3 Ml Nebu INH 12/10/24 12:28 3 ml PRN PRN Administration SOLN Plan 53-year-old male with a 10-year history of asthma admitted to the ICU for acute exacerbation in the setting of recurrent, poorly controlled symptoms despite frequent ED visits and suboptimal outpatient management. Patient downgraded to medical floors from ICU 11/11. #Community acquired pneumonia CXR 11/10 shows early bibasilar pneumonia. Treatment Plan: - Continue Ceftriaxone 1 gram and Azithromycin 500 mg (11/10-). - Monitor for fevers. #Status asthmaticus (resolved) #Hx of Asthma, exacerbation 10-year history of asthma (adult onset, no childhood asthma). Three prior episodes of asthma exacerbation that prompted ED visits. Currently on albuterol rescue inhaler only. Plan: - Continue Duonebs (Albuterol 2.5mg and Ipratropium 5mg) Q4H. - Duoneb Q2H PRN for breakthrough symptoms. - Continue Solu-Medrol 60 mg IV Q12H. - Budesonide 1 mg nebulized. ?Discharge home with maintenance inhalers Health Maintenance: Deposition: Tele Bed DVT prophylaxis: Heparin 5000 SC. GI prophylaxis: IV Pantoprazole 40 mg. Diet: Regular CODE STATUS: Full code Case discussed with my attending Dr. Brewer, and senior resident, Dr. Suresh Delaney MD PGY-1 Attending Provider Attestation/Addendum I attest that I was physically present for the evaluation, physical examination, lab and imaging review of the patient with the residents. I discussed the case with the residents and agree with the findings and plans of care as documented above. Patient seen and examined in ICU this afternoon. Appears comfortable and denies any new complaints. Saturating well on 2 L nasal cannula. He is a 53 years old male with past medical history of asthma who presented to the ED with complaint of acute shortness of breath. He was admitted to ICU for management of status asthmaticus hypoxic respiratory failure, lactic acidosis. Patient improved significantly, and was then transferred to medical floor for further management. We will continue with IV steroids, as needed breathing treatment, antibiotics. Will continue to wean down oxygen. We will continue to monitor closely for electrolyte imbalances and correct as needed. Awaiting culture results. Beau Brewer MD
[2024-11-11 13:51] LABS: Cocci Serology, IgM Negative (Negative)
[2024-11-11] MEDS: ALBUTEROL/IPRATROPIUM (Duoneb) RT SOL 3 ML NEBU INH ×3 (13:58→23:21)
[2024-11-11 14:56] LABS: Reflex Lactate? Y
[2024-11-11] MEDS: UMECLIDIN INH (15:58)
[2024-11-11] MEDS: FLUTICASONE INH (15:58)
[2024-11-11] MEDS: VILANTEROL INH (15:58)
[2024-11-11 16:39] LABS: Lactic Acid, 3 HR 1.3 mMol/L (0.4-2.0)
[2024-11-11 22:25] LABS: Free T4 (Free Thyroxine) 1.10 ng/dL (0.89-1.76)
[2024-11-12] VITALS (41 sets, daily range): BP systolic 88–117; BP diastolic 56–77; PULSE 61–94; RESP 15–32; TEMP 36.1–37.1; O2SAT 90–99
[2024-11-12] MEDS: ALBUTEROL/IPRATROPIUM (Duoneb) RT SOL 3 ML NEBU INH ×6 (02:26→23:00)
[2024-11-12] MEDS: HEPARIN SOD INJ 5000 UNIT/ML VIAL SC ×2 (05:01→21:01)
[2024-11-12 05:39] LABS: Basophils # (Auto) 0.0 Thou/mm3 (0.0-0.2); Basophils % (Auto) 0 % (0-2.5); Eosinophils # (Auto) 0.0 Thou/mm3 (0.0-0.5); Eosinophils % (Auto) 0 % (0-10); Hematocrit 42.3 % (41.0-53.0); Hemoglobin 14.4 g/dL (13.5-16.0); Immature Granulocytes Auto 0.09 Thou/mm3 (0.00-0.00); Lymphocytes # (Auto) 0.6 Thou/mm3 (1.0-4.8); Lymphocytes % (Auto) 3 % (10-50); Mean Corpuscular HGB Conc 34.0 g/dl (31.0-37.0); Mean Corpuscular Hemoglobin 32.8 pg (25.0-35.0); Mean Corpuscular Volume 96 fL (80-100); Monocytes # (Auto) 0.5 Thou/mm3 (0.0-0.8); Monocytes % (Auto) 3 % (0-12); Neutrophils # (Auto) 18.6 Thou/mm3 (1.8-7.7); Neutrophils % (Auto) 94 % (37-80); Nucleated Red Blood Cell # 0.00 Thou/mm3 (0.00-0.00); Nucleated Red Blood Cell % 0 /100 WBC (0); Platelet Count 159 Thou/mm3 (140-440); RDW Standard Deviation 47.4 fL (35.1-43.9); Red Blood Count 4.39 Miln/mm3 (4.50-5.90); White Blood Count 19.8 Thou/mm3 (3.8-10.6)
[2024-11-12 06:09] LABS: Alanine Aminotransferase 23 U/L (10-49); Albumin, Serum 3.9 gm/dL (3.5-5.0); Albumin/Globulin Ratio 2.0 (1.2-2.2); Alkaline Phosphatase 69 U/L (46-116); Anion Gap 10 (7-16); Aspartate Amino Transferase 17 U/L (0-34); BUN/Creatinine Ratio 17 Ratio (12-20); Bilirubin,Total 0.4 mg/dL (0.3-1.2); Blood Urea Nitrogen 12 mg/dL (9-23); Calcium 8.9 mg/dL (8.3-10.6); Calcium (Corrected) 9.0 mg/dL (8.5-10.1); Carbon Dioxide 25.4 mMol/L (20.0-31.0); Chloride 107 mMol/L (98-107); Creatinine (Component) 0.7 mg/dL (0.6-1.3); Estimated Creatinine Clearance 108.9 mL/min (>60); Globulin 2.0 gm/dL (2.3-3.5); Glucose 136 mg/dL (74-106); Magnesium 2.5 mg/dL (1.6-2.6); Osmolality,Calculated 284 (275-295); Phosphorous 3.3 mg/dL (2.4-5.1); Potassium 4.4 mMol/L (3.4-5.1); Sodium 142 mMol/L (136-145); Total Protein 5.9 gm/dL (5.7-8.2); eGFR > 60 See Note
[2024-11-12] MEDS: BUDESONIDE RT 0.5 MG/2 ML NEBU 1 MG INH ×2 (06:31→18:51)
[2024-11-12] MEDS: cefTRIAXone/D5w 1gm IV premix 1 GM/50 ML BAG IV (08:42)
[2024-11-12] MEDS: AZITHROMYCIN INJ 500 MG in SODIUM CHLORIDE 0.9% 250 ML 250 ML 250 MG IV (08:43)
--- NOTE | 2024-11-12 09:14 | PC.SS ---
Update: Plan is to d/c patient today.
--- NOTE | 2024-11-12 11:00 | PC.NURSE ---
Removed pt from NC 1L. PT O2 reached 88% on RA. Pt recovered to 90% on RA. Pt ambulated around room and O2 sat dropped to 89%. Pt placed on 1L NC.
--- NOTE | 2024-11-12 11:04 | PC.SS ---
FLOOR REFINISHER notified bedside nurse of need to conduct air evaluation to confirm patient's need for oxygen upon discharge.
--- NOTE | 2024-11-12 11:38 | PC.SS ---
Oxygen referral submitted on [facility] platform. Awaiting responses.
--- NOTE | 2024-11-12 11:52 | PD.RESDS ---
Planned Discharge Date 11/12/24 DS: Providers Provider Date of admission: 11/10/24 13:29 Primary care physician: Calvin Nina MD Admitting Provider: Iveth Polanco MD Attending Provider on Admission: Beau Brewer MD Consults: 11/10/24 15:11 Referral [place] Stat Comment: Referral Registered Dietitian Stat Comment: Attending Provider on DC: Beau Brewer MD Discharging Provider: Beau Brewer MD Hospital Course Hospital Course Hospital course: Patient seen at bedside. Patient received DuoNebs throughout the night in addition to IV steroids and receiving antibiotics including Rocephin and azithromycin. Patient is comfortable at rest and not complaining of any shortness of breath and feels like the symptoms have greatly improved. Time Spent with Patient Time attestation: Total time spent providing and/or coordinating discharge services: 33 min Exam Vital Signs Temp Pulse Resp BP Pulse Ox O2 Del Method O2 Flow Rate 97.3 F 71 18 94/62 98 Nasal Cannula 1 11/12/24 04:00 11/12/24 06:31 11/12/24 06:31 11/12/24 04:00 11/12/24 06:31 11/12/24 04:00 11/12/24 06:31 FiO2 50 11/10/24 11:40 Discharge Plan Plan Patient Disposition: HOME (Self Care) Patient condition on transfer: Stable Care Plan Goals: Please complete three (3) day regimen of Augmentin 875-125mg tablet twice a day for pneumonia Please use Trelegy inhaler once daily to prevent asthma exacerbation Use Montelukast 10mg tablet by mouth once a day at night to prevent asthma exacerbation Use albuterol inhaler 2 puffs every 6 hours as needed for shortness of breath - goal will be to use this medication as little as possible Please complete two (2) day course of prednisone 40mg by mouth daily Follow-up with your PCP within 1 week of discharge or follow-up at the [facility] [address] [place] [address] If your symptoms worsen or if you develop new chest pain, shortness of breath or dizziness - please come back to the ED immediately. Complete un r?gimen de eli (3) d?as con Augmentin 875-125 mg en tabletas dos veces al d?a para la neumon?a. Use el inhalador Trelegy clinton vez al d?a para prevenir la exacerbaci?n del asma. Use el inhalador de albuterol, 2 inhalaciones cada 6 horas seg?n sea necesario para la dificultad para respirar; el objetivo ser? usar ho medicamento lo menos posible. [place] la tableta de Montelukast 10 mg por v?a oral clinton vez al d?a por la noche para prevenir la exacerbaci?n del asma. Complete un tratamiento de dos (2) d?as con prednisona 40 mg por v?a oral diariamente. Consulte con shafer m?dico de cabecera dentro de la semana posterior al jj o en el [facility], [address], [place], [place] [id number] . Si terrance s?ntomas empeoran o presenta dolor en el pecho, dificultad para respirar o mareos, regrese a urgencias de inmediato. Prescriptions/Referrals Prescriptions/Med Rec: New Proair Digihaler 90 mcg/actuation aero powdr breath act w/sensor 90 mcg inhalation Q6H PRN (Reason: shortness of breath or wheezing) Qty: 1 0RF prednisone 20 mg tablet See Taper PO QDAY 2 Days Qty: 4 0RF Taper: Prednisone Taper 40 mg DAILY for 2 Days and 0 Hour amoxicillin-pot clavulanate 875-125 mg tablet 1 tab PO BID 3 Days Qty: 6 0RF Trelegy Ellipta 200-62.5-25 mcg blister with device 1 inh inhalation QDAY Qty: 60 0RF montelukast 10 mg tablet 10 mg PO QPM 30 Days Qty: 30 0RF Continued albuterol sulfate 90 mcg/actuation HFA aerosol inhaler 2 puff inhalation Q6H PRN (Reason: shortness of breath or wheezing) Qty: 8.5 1RF Discontinued doxycycline monohydrate 100 mg capsule 100 mg PO BID MDD 2 Qty: 20 0RF Referrals: Calvin Nina MD [Primary Care Provider, Family Practice] Patient/Caregiver Discharge Instructions Education Materials: What Is Pneumonia?, Asthma Print Language: Slovak Stand Alone Forms: Jeannie Award Info., Patient Portal Info Letter Discharge Order Discharge Orders: Discharge (Routine); Ordered 11/12/24 Ordered By: Kirby Moran MD Attestestation MD Attestation I attest that I was physically present for the evaluation, physical examination, lab and imaging review of the patient with the residents. I discussed the case with the residents and agree with the findings and plans of care as documented above. Beau Brewer MD
--- NOTE | 2024-11-12 13:05 | PC.SS ---
DME referral submitted electronically to [employer] at [email or web address]AL[employer] MANAGER submitted DME referral be fax also to [phone]. DME vendor for Carley middleton is [employer].
--- NOTE | 2024-11-12 14:23 | PC.SS ---
Rounding Note: Patient to d/c pending delivery of home oxygen.
--- NOTE | 2024-11-12 14:56 | PC.SS ---
TELEPHONE INFORMATION CLERK confirmed with [facility] that DME order has been received. TELEPHONE INFORMATION CLERK informed that once order is scheduled for delivery vendor will notify patient. TELEPHONE INFORMATION CLERK relayed that patient is remains admitted to the hospital discharge pending arrival of oxygen. TELEPHONE INFORMATION CLERK updated bedside nurse.
--- NOTE | 2024-11-12 19:12 | PC.NURSE ---
Contacted [facility] regarding patient home oxygen delivery status. Per representattive will call back with delivery status. Call back number provided.
--- NOTE | 2024-11-12 20:09 | ESPR_ITS ---
Documentation for date of: 11/12/24 Subjective Subjective Interval history: Patient seen at bedside. No acute overnight events. Patient still on 1 L oxygen. Patient desaturates when off of oxygen and still feels like he needs it. No complaints of chest pain, no nausea, no vomiting. Patient is eating. Possible discharge tomorrow with arrangement of home oxygen. Exam Vital Signs Temp Pulse Resp BP Pulse Ox O2 Del Method O2 Flow Rate 97.0 F 77 22 H 96/57 L 93 L Nasal Cannula 1 11/12/24 20:00 11/12/24 20:00 11/12/24 20:00 11/12/24 20:00 11/12/24 20:00 11/12/24 20:00 11/12/24 20:00 FiO2 50 11/10/24 11:40 Narrative Exam General: Awake, no respiratory distress, on NC 1L. Head: Normocephalic, atraumatic. Eyes: Pupils equally round and reactive to light. Anicteric. Mouth/Throat: moist mucous membranes. CVS: mild tachycardia, regular rhythm, no murmurs. No JVD. Resp: no labored breathing, no accessory muscles use, mild wheezing with improved aeration of both lung [place] particularly to R lung Abdomen: Soft, distended. No guarding or rebound tenderness. Neurologic: Alert and oriented x4, no gross neurological deficit, and patient able to move all 4 extremities. Extremities: No edema. Posterior tibial pulses are 2+ bilaterally. 2+ radial pulse bilaterally. No clubbing or cyanosis. No mottling. Objective Labs 11/13/24 04:07 11/13/24 04:07 Labs: Laboratory Results - last 24 hr 11/11/24 11/12/24 16:26 04:36 WBC 19.8 H RBC 4.39 L Hgb 14.4 Hct 42.3 MCV 96 MCH 32.8 MCHC 34.0 RDW Std Deviation 47.4 H Plt Count 159 Neut % (Auto) 94 H Lymph % (Auto) 3 L [place] % (Auto) 3 Eos % (Auto) 0 Baso % (Auto) 0 Neut # (Auto) 18.6 H Lymph # (Auto) 0.6 L [place] # (Auto) 0.5 Eos # (Auto) 0.0 Baso # (Auto) 0.0 Immature Gran # (Auto) 0.09 H Absolute Nucleated RBC 0.00 Immature Gran % 1 H Nucleated RBC % 0 Sodium 142 Potassium 4.4 D Chloride 107 Carbon Dioxide 25.4 Anion Gap 10 BUN 12 Creatinine 0.7 Estim Creat Clear Calc 108.9 eGFR > 60 BUN/Creatinine Ratio 17 Glucose 136 H Calculated Osmolality 284 Calcium 8.9 Corrected Calcium 9.0 Phosphorus 3.3 Magnesium 2.5 Total Bilirubin 0.4 AST 17 ALT 23 Alkaline Phosphatase 69 Total Protein 5.9 Albumin 3.9 Globulin 2.0 L Albumin/Globulin Ratio 2.0 Free T4 1.10 ABG Interpretation ABG results: 11/10/24 11/10/24 11/10/24 13:40 15:54 20:53 ABG pH 7.38 7.32 L 7.32 L ABG pCO2 34 30 L 26 L ABG pO2 75 L 111 H D 96 ABG HCO3 20 16 L 13 L ABG O2 Saturation 96 99 H 98 ABG Base Excess -5 L -9 L -11 L 11/11/24 04:05 ABG pH 7.36 ABG pCO2 33 ABG pO2 79 L ABG HCO3 19 L ABG O2 Saturation 97 ABG Base Excess -6 L Quality Measures Quality Measures none Assessment & Plan Assessment Current Active Medications: Generic Name Dose Route Start Last Admin Trade Name Freq PRN Reason Stop Dose Admin Acetaminophen 650 mg 11/10/24 13:29 Acetaminophen 325 Mg Tablet PO 12/10/24 13:28 Q6H PRN Fever >101.5 Acetaminophen 650 mg 11/10/24 13:29 Acetaminophen 325 Mg Tablet PO 12/10/24 13:28 Q6H PRN PAIN SCALE 1-3 (mild Albuterol/Ipratropium 3 ml 11/11/24 15:00 11/12/24 18:51 Albuterol/Ipratropium (Duoneb) Rt Ni 3 Ml Nebu INH 12/11/24 14:59 3 ml Q4HRRT JUAN Administration Albuterol/Ipratropium 3 ml 11/11/24 11:20 Albuterol/Ipratropium (Duoneb) Rt Ni 3 Ml Nebu INH 12/11/24 11:19 Q2HR PRN SOB/wheezing (breakthrough) Budesonide 1 mg 11/11/24 20:45 11/12/24 18:51 Budesonide Rt 0.5 Mg/2 Ml Nebu INH 12/11/24 20:44 1 mg BIDRT JUAN Administration Dextrose 25 ml 11/12/24 00:54 Dextrose 50%-Water Inj 50 Ml Syringe IV 12/12/24 00:53 Q15MIN PRN BG 50-70 responsive npo pt Dextrose 50 ml 11/12/24 00:54 Dextrose 50%-Water Inj 50 Ml Syringe IV 12/12/24 00:53 Q15MIN PRN BG <50 OR BG <70 & pt unresponsive Glucagon 1 mg 11/12/24 00:54 Glucagon Inj 1 Mg Vial IM Q15MIN PRN BG <70, and no IV access Heparin Sodium (Porcine) 5,000 unit 11/10/24 14:00 11/12/24 15:16 Heparin Sod Inj 5000 Unit/Ml Vial SC 11/24/24 13:59 Not Given Q8HR JUAN Ceftriaxone Sodium/Dextrose 1 gm in 50 mls @ 100 mls/hr 11/11/24 09:00 11/12/24 08:42 Rocephin/D5w 1gm Iv Premix IV 11/18/24 08:59 100 mls/hr QDAY JUAN Administration Azithromycin 500 mg/ Sodium 250 mls @ 250 mls/hr 11/11/24 09:48 11/12/24 08:43 Chloride IV 11/18/24 09:47 250 mls/hr QDAY JUAN Administration Insulin Human Lispro 0 unit 11/12/24 07:30 11/12/24 20:01 Insulin Lispro (Admelog) 1 Unit/0.01 Ml Unit SC 12/12/24 07:29 Not Given ACHS JUAN Protocol Methylprednisolone Sodium Succinate 60 mg 11/11/24 21:00 11/12/24 08:42 Methylprednisolone Sod Succ 40 Mg/Ml Vial IVP 11/18/24 20:59 60 mg Q12HR JUAN Administration Ondansetron HCl 4 mg 11/10/24 13:29 Ondansetron Inj 2 Mg/Ml Inj 2 Ml IVP 12/10/24 13:28 Q6H PRN NAUSEA OR VOMITING Protocol Pantoprazole Sodium 40 mg 11/10/24 13:45 11/12/24 08:43 Pantoprazole Inj 40 Mg Vial IVP 12/10/24 13:44 40 mg QDAY JUAN Administration Sodium Chloride 3 ml 11/10/24 12:29 11/10/24 15:04 Sodium Chloride Rt Ni 0.9% 3 Ml Nebu INH 12/10/24 12:28 3 ml PRN PRN Administration SOLN Plan 53-year-old male with a 10-year history of asthma admitted to the ICU for acute exacerbation in the setting of recurrent, poorly controlled symptoms despite frequent ED visits and suboptimal outpatient management. Patient downgraded to medical floors from ICU 11/11. #Community acquired pneumonia, resolving CXR 11/10 shows early bibasilar pneumonia. Treatment Plan: - Continue Ceftriaxone 1 gram and Azithromycin 500 mg (11/10-). - Monitor for fevers. #Status asthmaticus (resolved) #Hx of Asthma, exacerbation 10-year history of asthma (adult onset, no childhood asthma). Three prior episodes of asthma exacerbation that prompted ED visits. Currently on albuterol rescue inhaler only. Plan: - Continue Duonebs (Albuterol 2.5mg and Ipratropium 5mg) Q4H. - Duoneb Q2H PRN for breakthrough symptoms. - Continue Solu-Medrol 60 mg IV Q12H. - Budesonide 1 mg nebulized. ?Discharge home with maintenance inhalers Health Maintenance: Deposition: Tele Bed DVT prophylaxis: Heparin 5000 SC. GI prophylaxis: IV Pantoprazole 40 mg. Diet: Regular CODE STATUS: Full code Case discussed with my attending Dr. Osman Delaney MD PGY-1 Attending Provider Attestation/Addendum I attest that I was physically present for the evaluation, physical examination, lab and imaging review of the patient with the residents. I discussed the case with the residents and agree with the findings and plans of care as documented above. Patient seen and examined at bedside this morning. Appears comfortable and denies any new complaints. Saturating well on 1 to 2 L oxygen via nasal cannula. Attempted to discontinue supplemental oxygen, but patient desaturated below 88% on ambulation. WBC count remains high at 19.8 today but likely secondary to steroid use. Continues to be on Rocephin and azithromycin for community-acquired pneumonia, Solu-Medrol for status asthmaticus. Patient was planned for discharge on home oxygen but unable to get DME's. Beau Brewer MD
[2024-11-13] VITALS (13 sets, daily range): BP systolic 94–124; BP diastolic 64–75; PULSE 56–85; RESP 16–27; TEMP 36.1–37.1; O2SAT 93–99; BMI 27.4
[2024-11-13] MEDS: ALBUTEROL/IPRATROPIUM (Duoneb) RT SOL 3 ML NEBU INH ×4 (02:16→14:12)
[2024-11-13 05:53] LABS: Basophils # (Auto) 0.0 Thou/mm3 (0.0-0.2); Basophils % (Auto) 0 % (0-2.5); Eosinophils # (Auto) 0.0 Thou/mm3 (0.0-0.5); Eosinophils % (Auto) 0 % (0-10); Hematocrit 42.2 % (41.0-53.0); Hemoglobin 14.3 g/dL (13.5-16.0); Immature Granulocytes Auto 0.05 Thou/mm3 (0.00-0.00); Lymphocytes # (Auto) 0.7 Thou/mm3 (1.0-4.8); Lymphocytes % (Auto) 5 % (10-50); Mean Corpuscular HGB Conc 33.9 g/dl (31.0-37.0); Mean Corpuscular Hemoglobin 32.8 pg (25.0-35.0); Mean Corpuscular Volume 97 fL (80-100); Monocytes # (Auto) 0.4 Thou/mm3 (0.0-0.8); Monocytes % (Auto) 3 % (0-12); Neutrophils # (Auto) 12.1 Thou/mm3 (1.8-7.7); Neutrophils % (Auto) 92 % (37-80); Nucleated Red Blood Cell # 0.00 Thou/mm3 (0.00-0.00); Nucleated Red Blood Cell % 0 /100 WBC (0); Platelet Count 180 Thou/mm3 (140-440); RDW Standard Deviation 46.2 fL (35.1-43.9); Red Blood Count 4.36 Miln/mm3 (4.50-5.90); White Blood Count 13.2 Thou/mm3 (3.8-10.6)
[2024-11-13 06:08] LABS: Alanine Aminotransferase 25 U/L (10-49); Albumin, Serum 4.0 gm/dL (3.5-5.0); Albumin/Globulin Ratio 1.8 (1.2-2.2); Alkaline Phosphatase 70 U/L (46-116); Anion Gap 10 (7-16); Aspartate Amino Transferase 17 U/L (0-34); BUN/Creatinine Ratio 27 Ratio (12-20); Bilirubin,Total 0.5 mg/dL (0.3-1.2); Blood Urea Nitrogen 19 mg/dL (9-23); Calcium 9.3 mg/dL (8.3-10.6); Calcium (Corrected) 9.3 mg/dL (8.5-10.1); Carbon Dioxide 26.1 mMol/L (20.0-31.0); Chloride 105 mMol/L (98-107); Creatinine (Component) 0.7 mg/dL (0.6-1.3); Estimated Creatinine Clearance 107.5 mL/min (>60); Globulin 2.2 gm/dL (2.3-3.5); Glucose 128 mg/dL (74-106); Magnesium 2.2 mg/dL (1.6-2.6); Osmolality,Calculated 285 (275-295); Phosphorous 3.8 mg/dL (2.4-5.1); Potassium 4.6 mMol/L (3.4-5.1); Sodium 141 mMol/L (136-145); Total Protein 6.2 gm/dL (5.7-8.2); eGFR > 60 See Note
[2024-11-13] MEDS: HEPARIN SOD INJ 5000 UNIT/ML VIAL SC ×2 (06:17→13:07)
--- NOTE | 2024-11-13 06:26 | PC.NURSE ---
last bm=11/10/24- prune juice 1 cup given.
--- NOTE | 2024-11-13 06:27 | PC.NURSE ---
portable home O2 tank delivered and at bedside. Per pt, will be here maybe around 8am and with to educate re home O2 use. Notified [facility] of plan since O2 company haven't educate pt of home O2 use. Day rn to call [employer] when at bedside and they ( and pt.) are both ready for home O2 use education.
[2024-11-13] MEDS: BUDESONIDE RT 0.5 MG/2 ML NEBU 1 MG INH (06:45)
[2024-11-13] MEDS: cefTRIAXone/D5w 1gm IV premix 1 GM/50 ML BAG IV (09:23)
[2024-11-13] MEDS: AZITHROMYCIN INJ 500 MG in SODIUM CHLORIDE 0.9% 250 ML 250 ML 250 MG IV (09:45)
--- NOTE | 2024-11-13 10:15 | PC.SS ---
Addendum entered by Valerie Way 11/13/24 13:56: SS has followed with Madeleine from [employer] who explained their are now 2 orders for home O2 and one will be delivered to hospital between 3-8pm today and then to patient's home address. SS has requested for member service representative to teach pt and and nurse how to use O2. Madeleine is aware the importance of pt receiving O2 concentrator. Pt is aware. Bedside nurse, Tia is aware. Original Note: SS met with pt and regarding delivery of home O2 equipment. Pt has small O2 tank at bedside which was delivered around 2am by [employer], phone#[phone] but the O2 concentrator was not delivered. SS followed up with who states O2 concentrator was not delivered to patient's home. SS spoke to Sayda, member service representative from [employer] and explained pt has been ready for d/c since yesterday, 11-12-24, O2 concentrator was not delivered, and small O2 tank was the only DME delivered. Per Sayda, insurance must be verified again. Sayda from [employer] confirmed DME order was received for O2 concentrator and O2 small tank (continuos home O2). SS provided Sayda with SS, , and patient's phone# for delivery of O2 concentrator. aSyda from [employer] states O2 concentrator should be delivered today due to being hospital md.
[2024-11-13 10:39] LABS: Cocci Serology, IgG Negative (Negative)
--- NOTE | 2024-11-13 16:13 | PD.RESDS ---
Planned Discharge Date 11/13/24 DS: Providers Provider Date of admission: 11/10/24 13:29 Primary care physician: Calvin Nina MD Admitting Provider: Iveth Polanco MD Attending Provider on Admission: Beau Brewer MD Consults: 11/10/24 15:11 Referral Flores Stat Comment: Referral Registered Dietitian Stat Comment: Attending Provider on DC: Kirby Moran MD Discharging Provider: Kirby Moran MD DS: Diagnosis Problem List Completed Was Problem List Reviewed/Reconciled?: Yes Hospital Course Hospital Course Hospital course: 53-year-old male with past medical history of asthma diagnosed 10 years ago on rescue inhalers only presented to the ED on 11/10 with chief complaint of acute shortness of breath. Patient was alert oriented and examination did show significant wheezing bilaterally; moreover, patient remained tachypneic and short of breath even with breathing treatments Q1 hourly. There was also concern about possible community-acquired pneumonia as noted on chest x-ray. Patient was started on IV antibiotics but decision was made to upgrade patient to ICU level of care for closer monitoring if intubation was required. Patient was started on budesonide ICS, scheduled albuterol and IV methylprednisolone. Patient gradually made improvements and was weaned down to minimal oxygen requirements and downgraded to floors. Patient was unable to be weaned off oxygen completely as he was desaturating to 88 when ambulating without any oxygen. Patient otherwise denied having any concerning symptoms and will be discharged with new inhaler regimen and home oxygen. Patient will be discharged with the following strict instructions. Please complete three (3) day regimen of Augmentin 875-125mg tablet twice a day for pneumonia Please use Anoro Ellipta and Arnuity Ellipta inhalers once daily each to prevent asthma exacerbation Use Montelukast 10mg tablet by mouth once a day at night to prevent asthma exacerbation Use albuterol inhaler 2 puffs every 6 hours as needed for shortness of breath - goal will be to use this medication as little as possible Please complete two (2) day course of prednisone 40mg by mouth daily Follow-up with your PCP within 1 week of discharge or follow-up at the [facility] [address] [place] [address] If your symptoms worsen or if you develop new chest pain, shortness of breath or dizziness - please come back to the ED immediately. Hospital Diagnosis: #Status asthmaticus (resolved) #Hx of Asthma, exacerbation #Community acquired pneumonia, resolving Kirby Moran DO PGY-2 Internal Medicine - GME Status at Discharge Overall status at discharge: patient is progressing back to baseline Time Spent with Patient Time attestation: Total time spent providing and/or coordinating discharge services: 45 minutes Time spent: Greater than 30 minutes Exam Vital Signs Temp Pulse Resp BP Pulse Ox O2 Del Method O2 Flow Rate 98.7 F 68 18 94/64 99 Nasal Cannula 1 11/13/24 11:38 11/13/24 14:12 11/13/24 14:12 11/13/24 11:38 11/13/24 14:12 11/13/24 11:38 11/13/24 14:12 FiO2 50 11/10/24 11:40 Narrative Exam General: Awake, no respiratory distress, on NC 1L. Head: Normocephalic, atraumatic. Eyes: Pupils equally round and reactive to light. Anicteric. Mouth/Throat: moist mucous membranes. CVS: mild tachycardia, regular rhythm, no murmurs. No JVD. Resp: no labored breathing, no accessory muscles use, mild wheezing with improved aeration of both lung cedillo particularly to R lung Abdomen: Soft, distended. No guarding or rebound tenderness. Neurologic: Alert and oriented x4, no gross neurological deficit, and patient able to move all 4 extremities. Extremities: No edema. Posterior tibial pulses are 2+ bilaterally. 2+ radial pulse bilaterally. No clubbing or cyanosis. No mottling. Discharge Plan Plan Patient Disposition: HOME (Self Care) Patient condition on transfer: Stable Care Plan Goals: Please complete three (3) day regimen of Augmentin 875-125mg tablet twice a day for pneumonia Please use Anoro Ellipta and Arnuity Ellipta inhalers once daily each to prevent asthma exacerbation Use Montelukast 10mg tablet by mouth once a day at night to prevent asthma exacerbation Use albuterol inhaler 2 puffs every 6 hours as needed for shortness of breath - goal will be to use this medication as little as possible Please complete two (2) day course of prednisone 40mg by mouth daily Follow-up with your PCP within 1 week of discharge or follow-up at the [facility] [address] [place] [address] If your symptoms worsen or if you develop new chest pain, shortness of breath or dizziness - please come back to the ED immediately. Complete un r?gimen de eli (3) d?as con Augmentin 875-125 mg en tabletas dos veces al d?a para la neumon?a. Use el inhaladores Anoro Ellipta y Arnuity Ellipta clinton vez al d?a para prevenir la exacerbaci?n del asma. Use el inhalador de albuterol, 2 inhalaciones cada 6 horas seg?n sea necesario para la dificultad para respirar; el objetivo ser? usar ho medicamento lo menos posible. [place] la tableta de Montelukast 10 mg por v?a oral clinton vez al d?a por la noche para prevenir la exacerbaci?n del asma. Complete un tratamiento de dos (2) d?as con prednisona 40 mg por v?a oral diariamente. Consulte con shafer m?dico de cabecera dentro de la semana posterior al jj o en el [facility] [place], [address], [place] [address] . Si terrance s?ntomas empeoran o presenta dolor en el pecho, dificultad para respirar o mareos, regrese a urgencias de inmediato. Prescriptions/Referrals Prescriptions/Med Rec: New Proair Digihaler 90 mcg/actuation aero powdr breath act w/sensor 90 mcg inhalation Q6H PRN (Reason: shortness of breath or wheezing) Qty: 1 0RF prednisone 20 mg tablet See Taper PO QDAY 2 Days Qty: 4 0RF Taper: Prednisone Taper 40 mg DAILY for 2 Days and 0 Hour amoxicillin-pot clavulanate 875-125 mg tablet 1 tab PO BID 3 Days Qty: 6 0RF montelukast 10 mg tablet 10 mg PO QPM 30 Days Qty: 30 0RF umeclidinium-vilanterol [Anoro Ellipta] 62.5-25 mcg/actuation blister with device 1 inh inhalation QDAY Qty: 60 0RF fluticasone furoate [Arnuity Ellipta] 100 mcg/actuation blister with device 1 inh inhalation QDAY Qty: 30 0RF Continued albuterol sulfate 90 mcg/actuation HFA aerosol inhaler 2 puff inhalation Q6H PRN (Reason: shortness of breath or wheezing) Qty: 8.5 1RF Discontinued doxycycline monohydrate 100 mg capsule 100 mg PO BID MDD 2 Qty: 20 0RF Referrals: Calvin Nina MD [Primary Care Provider, Family Practice] Patient/Caregiver Discharge Instructions Education Materials: What Is Pneumonia?, Asthma Print Language: Swedish Stand Alone Forms: Jeannie Award Info., Patient Portal Info Letter Quality Discharge Quality Measures VTE prophylaxis Attestestation Attestation I attest that I was physically present for the evaluation, physical examination, lab and imaging review of the patient with the residents. I discussed the case with the residents and agree with the findings and plans of care as documented above. Beau Brewer MD
--- NOTE | 2024-11-13 16:33 | PC.NURSE ---
Dr. Blanchard covering for Dr. Moran aware O2 delivery service will be here in about 2 hours per . states I will enter discharge orders.
--- NOTE | 2024-11-13 18:05 | PC.NURSE ---
alexei with O2 DME company at bedside educating pt. on how to use O2 tank with help of steam distribution supervisor via phone Mihaela ALLEN. RN and ISHAAN Butler went with Alexei to pt. car to load concentrator and provide instructions to pt. and about concentrator with assistance of steam distribution supervisor via phone [phone]. pt. and both verbalize understanding educatio provided and verified with yakut interpreters that no further questions needed answers at discharge.
[2024-11-13] MEDS: INFLUENZA VIRUS QUADRIVALENT 0.5 ML SYRINGE IMi (18:21)
--- NOTE | 2024-11-14 08:29 | CHAP ---
Patient was visited by a Spiritual Care Volunteer on 11/13/2024 between 0855 and 1200 and received comfort, encouragement and/or prayer.
== END 2024-11-13 18:35 | disposition home or self-care (01) | DRG 141 ==
LOC: SERX 12:34 → SERHOLD 14:07 → S2SX 14:32 → S2NX 11-12 19:25 → S3NX 11-13 00:23
PROVIDERS: Nurse Practitioner Family; Student in an Organized Health Care Education/Training Program; Admitting Provider Family Medicine; Emergency Provider Emergency Medicine; PCP Family Medicine; Visit Provider Student in an Organized Health Care Education/Training Program
DX: J45.52 Severe persistent asthma with status asthmaticus (principal); R63.4 Abnormal weight loss; Z68.27 Body mass index [BMI] 27.0-27.9, adult; F41.9 Anxiety disorder, unspecified; R06.03 Acute respiratory distress; D75.1 Secondary polycythemia; R73.9 Hyperglycemia, unspecified; J18.9 Pneumonia, unspecified organism; E87.20 Acidosis, unspecified; T38.0X5A Adverse effect of glucocorticoids and synthetic analogues, initial encounter; Z79.899 Other long term (current) drug therapy
CPT/HCPCS: 36415; 36600; 71045; 80053; 80061; 82803; 83036; 83605; 83735; 84100; 84132; 84145; 84439; 84443; 85025; 86331; 86635; 87040; 87081; 87502; 87811; 90686; 93005; 94640; 94644; 94660; 96365; 96366; 96372; 96375; 99285; A9270; J0166; J0456; J0696; J1644; J1815; J2470; J2919; J3475; J3490; J7050; J7120; J3535; J9060